=== PATIENT | female | born 1995 | race Caucasian/White ===

== ENCOUNTER 2018-04-25 22:40 | Emergency (ER) | payer SELFPAY ==
[2018-04-25 23:33] LABS: Absolute Lymphocytes (CBC) 2.3 K/uL (0.7-4.9); Absolute Monocytes 0.8 K/uL (0.1-1.3); Absolute Neutrophil 2.7 K/uL (1.8-8.0); Basophils % 0.9 % (0-1.3); Eosinophils % 1.4 % (0-4.4); Hematocrit 38.4 % (36.0-45.0); Lymphocytes % 38.8 % (15.3-44.8); MCV 91.3 fL (80-100); MPV 9.1 fL (7.6-11.3); Monocytes % 13.2 % (3.3-12.3)
[2018-04-25 23:41] LABS: Protime INR 1.07
[2018-04-26 00:02] LABS: Barbiturates NEGATIVE (NEGATIVE); Benzodiazepines POSITIVE (NEGATIVE); Cocaine NEGATIVE (NEGATIVE); METHAMPHETAM POSITIVE (NEGATIVE); Methadone NEGATIVE (NEGATIVE); Opiates NEGATIVE (NEGATIVE); Phencyclidine NEGATIVE (NEGATIVE); THC Cannibis POSITIVE (NEGATIVE)
[2018-04-26 00:02] LABS: ALT/SGPT 21 U/L (12-78); AST/SGOT 22 U/L (15-37); Alkaline Phosphatase 70 U/L (45-117); BUN Blood Urea Nitrogen 15 mg/dL (7-18); Bicarbonate 26 mmol/L (21-32); Bilirubin Direct 0.2 mg/dL (0-0.2); Bilirubin Total 0.5 mg/dL (0.2-1.0); Glucose Level 144 mg/dL (74-106); Potassium 3.5 mmol/L (3.5-5.1); Protein, Total 7.3 g/dL (6.4-8.2); Sodium Level 138 mmol/L (136-145)
[2018-04-26 00:07] LABS: Urine Blood NEGATIVE (NEG); Urine Glucose NEGATIVE (NEG); Urine Protein TRACE (NEG); Urine Specific Gravity 1.025 (1.005-1.030); Urine pH 5.5 (5.0-7.0)
--- NOTE | 2018-04-26 02:36 | EDPHYS ---
Physician Documentation [facility] Name: Kimberley Aquino Age: 22 yrs Sex: Female : 1995 Arrival Date: 04/25/2018 Time: 22:44 Bed 2 Private MD: ED Physician Raymond Fuentes HPI: 04/25 23:00 This 22 yrs old Female presents to ER via EMS with complaints of drug abuse. cp 23:00 The patient presents to the emergency department with a history of substance abuse, cp Type: methamphetamines, the amount of abuse is unknown. Past psychiatric history: Prior diagnosis: addiction history, methamphetamines, Psychiatric medications include: none. Associated signs and symptoms: Pertinent negatives: abdominal pain, chest pain, homicidal ideation, suicide ideation, vomiting. 23:00 EMS reports patient was found on floor in home by mother. Patient admitted to using cp methamphetamine today. Historical: - Allergies: 23:09 No Known Allergies; aa1 - Home Meds: 23:09 None [Active]; aa1 - PMHx: 23:09 Endometrosis; substance abuse; aa1 - PSHx: 23:09 ; Tonsillectomy; aa1 - Immunization history:: Adult Immunizations unknown. - Social history:: Smoking status: unknown Patient uses street drugs, Methamphetamine (Meth). - Ebola Screening: : Unable to complete screening because patient is disoriented, . ROS: 23:05 Unable to obtain ROS due to patient being uncooperative. cp Exam: 23:10 Head/Face: Normocephalic, atraumatic. cp 23:10 Constitutional: The patient appears in no acute distress, well developed, well nourished. 23:10 Eyes: Periorbital structures: appear normal, Pupils: equal, round, and reactive to cp light and accomodation, Conjunctiva: normal, no exudate, no injection, Lids and lashes: appear normal, bilaterally. 23:10 ENT: External ear(s): are unremarkable, Nose: is normal, Mouth: Lips: moist, Posterior pharynx: Airway: no evidence of obstruction, patent. 23:10 Chest/axilla: Inspection: normal. 23:10 Cardiovascular: Rate: normal, Rhythm: regular. 23:10 Respiratory: the patient does not display signs of respiratory distress, Respirations: normal, no use of accessory muscles, no retractions, no splinting, no tachypnea, labored breathing, is not present. 23:10 Abdomen/GI: Inspection: abdomen appears normal. 23:10 Skin: cellulitis, is not appreciated, no rash present. 23:10 Neuro: Motor: moves all fours, strength is normal. 23:10 Psych: Behavior/mood is aggressive, uncooperative, Patient has no thoughts/intents to harm self or others. 23:37 ECG was reviewed by the Attending Physician. cp Vital Signs: 22:44 BP 118 / 83; Pulse 71; Resp 16; Temp 98.8; Pulse Ox 100% on R/A; aa1 23:41 BP 106 / 81; Pulse 95; Resp 16; Pulse Ox 100% on R/A; aa1 04/26 00:30 BP 102 / 56; Pulse 70; Resp 16; Pulse Ox 100% on R/A; Pain 0/10; aa1 01:29 BP 104 / 63; Pulse 68; Resp 16; Pulse Ox 98% on R/A; Pain 0/10; aa1 02:30 BP 102 / 60; Pulse 80; Resp 16; Pulse Ox 100% on R/A; Pain 0/10; aa1 MDM: 04/25 22:46 Patient medically screened. [facility] 04/26 02:33 Data reviewed: vital signs, nurses notes, lab test result(s), EKG, and as a result, I cp will discharge patient. 02:33 ED course: VSS. Patient alert and interacting appropriately with family members. Will cp discharge home with family who feel comfortable observing patient. 04/25 22:49 Order name: Acetaminophen; Complete Time: 01:09 04/25 22:49 Order name: Basic Metabolic Panel; Complete Time: 01: 04/26 01:09 Interpretation: Normal except: GLUC 144. 04/25 22:49 Order name: CBC with Diff; Complete Time: 01: 04/26 01:09 Interpretation: Normal except: MN% 13.2. 04/25 22:49 Order name: ETOH Level; Complete Time: 01: 04/26 01:09 Interpretation: ETOH < 3; Reviewed. 04/25 22:49 Order name: Hepatic Function; Complete Time: 01:09 04/25 22:49 Order name: PT-INR; Complete Time: 01:09 cp 04/25 22:49 Order name: Urine Test (obtain specimen); Complete Time: 23:44 cp 04/25 22:49 Order name: Ptt, Activated; Complete Time: 01:09 cp 04/25 22:49 Order name: Salicylate; Complete Time: 01:09 cp 04/25 22:49 Order name: Urine Drug Screen; Complete Time: 01:09 cp 04/26 01:09 Interpretation: Normal except: BZO POSITIVE; METHAMPHETAMINE POSITIVE; THC POSITIVE. cp 04/25 22:49 Order name: EKG; Complete Time: 22:50 cp 04/25 23:45 Order name: Urine Dipstick--Ancillary (enter results) ms 04/25 23:45 Order name: Urine Dipstick-Ancillary; Complete Time: 01:09 EDMS 04/25 23:45 Order name: Urine --Ancillary (enter results); Complete Time: 01:09 ms 04/25 22:49 Order name: EKG - Nurse/Tech; Complete Time: 23:43 cp 04/25 22:49 Order name: IV Saline Lock; Complete Time: 23:21 cp 04/25 22:49 Order name: Labs collected and sent; Complete Time: 23:21 cp 04/25 22:49 Order name: Urine Dipstick-Ancillary (obtain specimen); Complete Time: 23:43 cp EC/28 23:37 Rate is 73 beats/min. Rhythm is regular. MO interval is normal. QRS interval is normal. cp QT interval is normal. T waves are Flattened in lead aVL. Interpreted by me. Reviewed by me. Administered Medications: No medications were administered Disposition: 04/26 03:00 Chart complete. cp 06:37 Co-signature as Attending Physician, Raymond Fuentes MD I agree with the assessment and saqib plan of care. Disposition: 04/26/18 02:35 Discharged to Home. Impression: Adverse effect of amphetamines, Abuse of other non-psychoactive substances. - Condition is Stable. - Discharge Instructions: Substance Use Disorder, Stimulant Use Disorder-Methamphetamines, What You Need To Know About Illegal Drug Use and Dependence, Youth. - Medication Reconciliation Form, Thank You Letter, Antibiotic Education, Prescription Opioid Use form. - Follow up: Emergency Department; When: As needed; Reason: Worsening of condition. - Problem is new. - Symptoms have improved. Signatures: Dispatcher [employer] Hodan Cates, RN RN aa1 Raymond Fuentes MD MD cha Page, Corey, PA PA cp Caitlyn Ramirez, RN RN tl2 Corrections: (The following items were deleted from the chart) 02:43 02:35 04/26/2018 02:35 Discharged to Home. Impression: Adverse effect of amphetamines. cp Condition is Stable. Forms are Medication Reconciliation Form, Thank You Letter, Antibiotic Education, Prescription Opioid Use. Follow up: Emergency Department; When: As needed; Reason: Worsening of condition. Problem is new. Symptoms have improved. cp 02:59 02:43 04/26/2018 02:35 Discharged to Home. Impression: Adverse effect of amphetamines; tl2 Abuse of other non-psychoactive substances. Condition is Stable. Discharge Instructions: Stimulant Use Disorder-Methamphetamines, What You Need To Know About Illegal Drug Use and Dependence, Youth. Forms are Medication Reconciliation Form, Thank You Letter, Antibiotic Education, Prescription Opioid Use. Follow up: Emergency Department; When: As needed; Reason: Worsening of condition. Problem is new. Symptoms have improved. cp
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
--- NOTE | 2018-04-26 09:23 | EKG ---
Test Date: 2018-04-25 Test Time: 23:30:30 Electromechanical Assembler: REJI MEASUREMENT RESULTS: Intervals: Rate: 73 ND: 120 QRSD: 92 QT: 422 QTc: 464 [place]: P: 64 ND: 120 QRS: 78 T: 75 INTERPRETIVE STATEMENTS: Normal sinus rhythm Normal ECG No previous ECG available for comparison Electronically Signed On 04-26-18 09:22:32 CDT by Ankit Fragoso
== END 2018-04-26 02:59 | disposition home or self-care (01) ==
LOC: ER 22:40
DX: F55.8 Abuse of other non-psychoactive substances (principal); T43.625A Adverse effect of amphetamines, initial encounter
CPT/HCPCS: 36415; 51702; 80048; 80076; 80307; 80320; 80329; 81003; 81025; 82962; 85025; 85610; 85730; 93005; 99284

== ENCOUNTER 2022-06-30 20:43 | Observation (INO) | payer SELFPAY ==
--- OUTSIDE RECORDS SUMMARY | 2022-06-30 20:46 | XMS REPORT | Continuity of Care Document ---
:1995 Author Organization [facility] t Address [address] [place] [address] [address] [place] [address] Care Team Providers Name Role Phone Alvarado Dumont Attending Clinician Unavailable Alvarado Dumont Attending Clinician Unavailable Alvarado Dumont MD Attending Clinician Elly Petersen Attending Clinician Tresa Mitchell MD Attending Clinician Alvarado Dumont Admitting Clinician Unavailable Payers Payer Name Policy Type Policy Number Effective Date Expiration Date S ource Problems Condition Condition Condition Status Onset Resolution Last Treating Co mments Source Name Details Category Date Date Treatment Clinician Date Overweight Overweight Disease Active 2013-07 Overview : Univers 07-31 ICD10 ity of 00:00: Diagnosis [place] [address] Term Medical [facility] [place] [facility] Utility Tobacco Tobacco Disease Active 2013-07 Univers use use 07-31 ity of disorder disorder 00:00: [place] [address] Medical Branch Allergies, Adverse Reactions, Alerts Allergy Allergy Status Severity Reaction(s) Onset Inactive Treating Comm ents Source Name Type Date Date Clinician No Known DA Active U 2015-07 [facility] All[facility]ie 08-14 [place] [facility] 00:00: d 00 [facility] No Known Drug Active [facility] No Known Drug Active [facility] No Known Drug Active [facility] No Known Drug Active [facility] No [facility] [place] No Known Drug [facility] Social History Social Habit Start Date Stop Date Quantity Comments Source History of Cigarette Smoker Universi ty of tobacco use [facility] Alcohol intake [facility] Sex Assigned At Universit y of [facility] Tobacco Comment 2015-04-27 2015-04-27 smokes 5-6 Universit y of 00:00:00 00:00:00 cigarettes per day [facility] Smoking Status Start Date Stop Date Source Current every day smoker 2019-04-02 00:00:00 Uni versity of [facility] Medications Ordered Filled Start Stop Current Ordering Indication Dosage Frequency Signature Comments Components Source Medication Medication Date Date Medication? Clinician (SIG) Name Name acetaminoph 2019- No 650mg 650 mg, U nivers en 04-03 Oral, ity of (TYLENOL) 10:00: 08:58 [place]CE[place] 650 00 :00 dose, Fri Medi elia mg 04/03/19 at Branch 0500, [place] ziprasidone 2019- No 20mg 20 mg, Uni vers (GEODON) 04-03 Intramuscu ity of injection 02:21: 02:33 [place], ONCE, [place] 20 mg 00 :00 1 dose, Medical [facility] 04/02/19 Branch at 2130, [place] melatonin Yes 3mg 3 mg, Univers (MELATIN) 04-03 Oral, QHS, ity of tablet 3 mg 02:00: First dose [facility] Medical 04/02/19 at Branch 2100, Until Discontinu ed, Routine acetaminoph 2018- No 650mg 650 mg, U nivers en 04-03 Oral, ity of (TYLENOL) 01:43: 02:31 [place]CE[place] 650 00 :00 dose, [place] Medi elia mg 04/02/19 at Branch 2045, [place] ibuprofen 2019- No 600mg 600 mg, Uni vers (IBU) 04-02 Oral, ity of tablet 600 23:45: 22:42 ONCE, 1 [place] as mg 00 :00 dose, [facility] Medical 04/02/19 at Branch 1845, [facility] ziprasidone 2018- No 20mg 20 mg, Uni vers (GEODON) 04-02 Intramuscu ity of injection 19:00: 17:53 lar, ONCE, [place] 20 mg 00 :00 1 dose, Medical [facility] 04/02/19 Branch at 1400, [facility] nicotine 2018- Yes 1{patch 1 Patch, Un nino (NICODERM) 04-02 } Topical, ity o f 21 mg/24 hr 17:15: Administer [place] patch 1 00 over 24 Medical Patch Hours, Branch Q24H, First dose on Fina 04/02/19 at 1215, Until Discontinu ed, Routine LORazepam 2018- No 2mg 2 mg, Univer s (ATIVAN) 04-02 Oral, ity of tablet 2 mg 16:14: 16:16 [place]CE, 1 [place] 00 :[place] dose, [facility] Medical 04/02/19 at Branch 1115, [facility] acetaminoph 2018- No 650mg 650 mg, U nivers en 04-02 Oral, ity of (TYLENOL) 11:15: 10:11 [place]CE, [place] tablet 650 00 :00 dose, [facility] Medi elia mg 04/02/19 at Branch 0615, [facility] ziprasidone 2019- No 20mg 20 mg, Uni vers (GEODON) 04-01 Intramuscu ity of injection 23:30: 22:26 lar, ONCE, [place] 20 mg 00 :00 1 dose, Medical 04/01/19 Branch at 1830, [facility] Yes [id number] 1{tbl} Take 1 Tab Univers ref27-zfke- 9-30 by mouth ity of folic acid 00:00: daily. [place] (PRENATA) Medical 29 mg iron- Branch 1 mg Chew Yes [id number] 1{tbl} Take 1 Tab Univers tjk32-ohor- 9-30 by mouth ity of folic acid 00:00: daily. [place] (PRENATA) Medical 29 mg iron- Branch 1 mg Chew Immunizations Ordered Filled Immunization Date Status Comments [facility] e Immunization Name Name Influenza Virus 2015-04-27 Completed Universit y of Vaccine Quad IM 3+ 00:00:00 [facility] Influenza Virus 2015-04-27 Completed Universit y of Vaccine Quad IM 3+ 00:00:00 [facility] Tdap 2011-02-28 Completed University of 00:00:00 [facility] Tdap 2011-02-28 Completed University of 00:00:00 [facility] HPV 2010-09-08 Completed University of 00:00:00 [facility] HPV 2010-09-08 Completed University of 00:00:00 [facility] Vital Signs Vital Name Observation Time Observation Value Comments Source Height/Length 2021-08-15 11:27:54 175.26 cm Measured Weight Dosing 2021-08-15 11:27:54 63.50 kg Height/Length 2021-08-15 11:26:41 175.26 cm Measured Weight Dosing 2021-08-15 11:26:41 63.50 kg Height/Length 2021-08-15 11:20:53 175.26 cm Measured Weight Dosing 2021-08-15 11:20:53 63.50 kg Height/Length 2021-08-15 11:19:46 175.26 cm Measured Weight Dosing 2021-08-15 11:19:46 63.50 kg Height/Length 2021-08-15 09:57:40 175.26 cm Measured Weight Dosing 2021-08-15 09:57:40 63.50 kg Height/Length 2021-08-15 08:55:40 175.26 cm Measured Weight Dosing 2021-08-15 08:55:40 63.50 kg Systolic blood 2019-04-03 08:59:31 103 mm[Hg] Univer sity of pressure [facility] Diastolic blood 2019-04-03 08:59:31 61 mm[Hg] Unive [facility] [place] Heart rate 2019-04-03 08:59:31 92 /min [facility] Respiratory rate 2019-04-03 08:59:31 18 /min [facility] Oxygen saturation in 2019-04-03 08:59:31 99 /min [facility] Arterial blood by [facility] Pulse oximetry Branch Body temperature 2019-04-02 22:23:09 36.[address] [facility] [address] [facility] Body weight 2019-04-01 21:02:00 59.013 kg [facility] Systolic blood 2019-04-03 08:59:31 103 mm[Hg] Univer sity of pressure [facility] Diastolic blood 2019-04-03 08:59:31 61 mm[Hg[facility] Heart rate 2019-04-03 08:59:31 92 /min [facility] Respiratory rate 2019-04-03 08:59:31 18 /min [facility] Oxygen saturation in 2019-04-03 08:59:31 99 /min [facility] Arterial blood by [facility] Pulse oximetry [place] Body temperature 2019-04-02 22:23:09 36.39 [place] [facility] Body weight 2019-04-01 21:02:00 59.013 kg [facility] Procedures Procedure Date / Time Performing Clinician Source Performed COMP. METABOLIC PANEL 2019-04-01 21:54:00 Elly Claire [facility] ([id number]) [facility] SALICYLATE 2019-04-01 21:54:00 Elly Claire [facility] ETHANOL 2019-04-01 21:54:00 Elly Claire [facility] CBC WITH DIFFERENTIAL 2019-04-01 21:54:00 Elly Claire [facility] URINALYSIS 2019-04-01 21:54:00 Elly Claire [facility] POCT TEST 2019-04-01 21:54:00 Elly Claire [facility] ADC / LCC - DRUG SCREEN 2019-04-01 21:54:00 Elly Claire [facility] TRIAGE [facility] EKG-12 LEAD 2019-04-01 21:35:00 Elly Claire [facility] NOTICE OF PRIVACY 2019-04-01 20:53:12 Doctor Unassigned, No Univ [facility] PRACTICES Name Medical Branch CONSENT/REFUSAL FOR 2019-04-01 20:48:00 [facility] Encounters Start End Encounter Admission Attending Care Care Encounter Source Date/Time Date/Time Type Type Clinicians Facility Department ID 2019-04-03 2019-04-20 Inpatient [address] [facility] [id number] 04[facility]47[facility]00 [facility]30[facility]-04-03 2019-04-[address] [facility] [address] [facility] [id number] 13:11:50 23:59:00 Encounter Alvarado MCDOWELL [id number] MEDICAL 4.2.7.2.686 [place] [id number] 2019-04-03 2019-04-[address] [facility] [address] [facility] [id number] Univers 13:11:50 23:59:00 Encounter Alvarado MCDOWELL [id number] ity of [facility] [id number] [facility] [id number] [address] 2019-04-01 2019-04-03 [facility] Elly Claire [facility] 1.2.840. [id number] [facility] 16:06:04 04:05:00 Tresa Mitchell [id number] ity of [place] 4.2.7.2.686 [facility] [id number] [place] [address] Branch 2019-04-01 2019-04-03 [facility] Elly Claire [facility] 1.2.840. [id number] 16:06:04 04:05:00 Tresa Mitchell [id number] [place] 4.2.7.2.686 [place] [id number] 084 Results Test Description Test Time Test Comments Results Result Comments Source RPR Qualitative 2019-04-04 14:41:51 Test Item Value Reference Range Interpretation Comme nts RPR Qual (test code = RPR Qual) Non-Reactive Non-Reactive Reactive Control (test code = Reactive Control) Reactive Weak Reactive Control (test code = Weak Reactive Weak Reactive Control) Non-Reactive Control (test code = Non-Reactive Non-Reactive Control) Lot # (test code = Lot #) [id number] Expiration Dt (test code = Expiration Dt) 05-28-20 N Thyroid Stimulating [id number] 09:14:49 Test Item Value Reference Range Interpretation Comments TSH (test code = TSH) 1.120 mIU/mL 0.270-4.200 Lipid [id number] 09:01:23 Test Item Value Reference Range Interpretation Comments Cholesterol Total 155 mg/dL 0-200 RISK OF HE ART (test code = DISEASEPublishe d by Cholesterol Total) [place] [employer] Iva lyte Optimal Borderl ine Increased RiskC HOL <200 200-239 >240TRI G <150 150-199 >200HDL Male >60 <40HDL Fema le >60 <50LDL <100 130 -159 >160LDL Near op timal is 100-129 Triglycerides (test 48 mg/dL 9-200 code = Triglycerides) HDL (test code = HDL) 70 mg/dL 50-60 H LDL (test code = LDL) 76 mg/dL 0-130 The eq uation being used in this calcula tion is LDL = (Chol - H DL) - (Trig / 5) VLDL (test code = 10 mg/dL 5-40 The equati on being used VLDL) in this calcula tion is VLDL = Trig / 5 Chol/HDL (test code = 2.2 ratio 0.0-4.4 Chol/HDL) LDL/HDL Ratio (test 1 N The equa tion being used code = LDL/HDL Ratio) in thi s calculation is LDL/HDL Ratio=L DL Calc/HDL Chol [id number] 22:33:00 Test Item Value Reference Range Interpretation Comments ALCOHOL (test code = <10 mg/dL 7524729381) KHOA (test code = KHOA) <10 Arcjcwkg84-950 Toxic>100 Depression of SENIOR PRICING ANALYST>400 [facility]atalities [facility]orted [facility] 22:33:00 Test Item Value Reference Range Interpretation Comments ACETAMINOP (test code = <10.0 10-30 L 4821411528) KHOA (test code = KHOA) Toxic: Greater than 200 ug/mL @ 4 hour post ingestion or greater than 50 ug/mL @ 12 hour post ingestion Lab Interpretation (test Abnormal code = 81631-5) [facility] 22:33:00 Test Item Value Reference Range Interpretation Comments SALICYLATE (test code <10 mg/L = 7656924414) KHOA (test code = KHOA) Therapeutic Range:? Analgesic and Antipyretic Use? 20-100 mg/L? Anti-Inflammatory Use? 100-250 mg/LToxic Range:? Greater than 300 mg/L [facility] PAN[facility] (24742)2019-04-01 22:31:00 Test Item Value Reference Range Interpretation Comments NA (test code = 143 mmol/L 135-145 9474723569) K (test code = 4.4 mmol/L 3.5-5 1715128888) CL (test code = 105 mmol/L 98-108 2901917832) CO2 TOTAL (test code = 29 mmol/L 23-31 3331557325) AGAP (test code = 2-16 3093465576) BUN (test code = 9 mg/dL 7-23 9926363224) GLUCOSE (test code = 84 mg/dL 70-110 0396088451) CREATININE (test code = 0.51 mg/dL 0.5-1.04 5629677344) TOTAL BILI (test code = 0.2 mg/dL 0.1-1.9 1192892398) CALCIUM (test code = 10.2 mg/dL 8.6-10.6 5467669566) T PROTEIN (test code = 7.9 g/dL 6.3-8.2 1866473202) ALBUMIN (test code = 4.9 g/dL 3.5-5 3312112158) ALK PHOS (test code = 66 U/L 34-122 4298669720) ALT(SGPT) (test code = 53 U/L 9-51 H 6705759876) AST(SGOT) (test code = 50 U/L 13-40 H 2843346579) eGFR Calculation mL/min/1.73m2 (Non-) (test code = 7956497840) eGFR Calculation mL/min/1.73m2 () (test code = 8780366127) KHOA (test code = KHOA) Association of Glomerular Filtration Rate (GFR) and Staging of Kidney Disease*+ + + +| GFR (mL/min/1.73 m2)?| With Kidney Damage?|?Without Kidney Damage+ --------+ --------+ +|?>90?|?S tage one?|? Normal?+ ---------+ ---------+ +|?60-89? |?Stage two?|? Decreased GFR? + --+ --+ ------+|?30-59?|?Stage three?|? Stage three? + --+ --+ ------+|?15-29?|?Stage four? |? Stage four?+ -------+ -------+ +|?<15 (or dialysis)?|?Stage five? |? Stage five?+ -------+ -------+ +*Each stage assumes the associated GFR level has been in effect for at least three months.?Stages 1 to 5, with or without kidney disease, indicate chronic kidney disease.Notes: Determination of stages one and two (with eGFR >59mL/min/1.73 m2) requires estimation of kidney damage for at least three months as defined by structural or functional abnormalities of the kidney, manifested by either:Pathological abnormalities or Markers of kidney damage (including abnormalities in the composition of the blood or urine or abnormalities in imaging tests). Lab Interpretation Abnormal (test code = 03317-4) [facility] / [facility] - DRUG SCREEN [id number] 22:25:00 Test Item Value Reference Range Interpretation Comments BENZO U (test code = Negative Negative 5182195856) JAMES U (test code = Negative Negative 0094326643) AMPHET (test code = Negative Negative 1697858604) THC (test code = Negative Negative 5622377093) METHADONE (test code = Negative Negative 9551715063) Meth U (test code = Presumptive Positive Negative A 8835125344) OPIATES (test code = Negative Negative 1104424715) Cocaine Metabolite (test Negative Negative code = 1566679010) PROPOXY (test code = Negative Negative 2831446492) Tric U (test code = Negative Negative 9074887319) PCP (test code = Negative Negative 5345838579) OXYCOD (test code = Negative Negative 4017854984) KHOA (test code = KHOA) Urine Drug Cutoff RangesBenzodiazepines : ? ? 150 ng/mLBarbiturates: ?200 ng/mLAmphetamine: ? 500 ng/mLCannabinoids: ?50?ng/mLMethadone: ? 200 ng/mLMethamphetamine: ? 500 ng/mL Opiates: ? 100 ng/mL or 2000 ng/mLCocaine: ? 150 ng/mLPropoxyphene:?30 0 ng/mLTricyclics:?300 ng/mLOxycodone:? 100 ng/mLPCP:? 25?ng/mLThe results are to be used only for medical (i.e., treatment) purposes. Unconfirmed screening results must not be used for non-medical purposes (e.g., employment testing, legal testing). Lab Interpretation (test Abnormal code = 75841-6) [facility] 22:22:00 Test Item Value Reference Range Interpretation Comments APPEARANCE (test code = Clear Clear 0906657313) COLOR (test code = Colorless Yellow A 2761305294) PH (test code = 4.8-8.0 0446653764) SP GRAVITY (test code = <=1.005 1.003-1.030 6345362450) GLU U QUAL (test code = Negative Negative 8177516051) BLOOD (test code = Negative Negative 6028258113) KETONES (test code = Negative Negative 1576507399) PROTEIN (test code = Negative Negative 2887-8) UROBILIN (test code = 0.2 mg/dL See_Comment [Auto mated message] 5029048979) The system [employer] generated this result transmit jake reference range : 0-1.0 mg/dL. Th e reference range was not used to interpret this result as normal/abnormal . BILIRUBIN (test code = Negative Negative 4876003806) NITRITE (test code = Negative Negative 6235137863) LEUK JAMI (test code = Negative Negative 1638304552) RBC/HPF (test code = See_Comment [Autom ated message] 8771223689) The system [employer] generated this result transmit jake reference range : 0 - 3 HPF. The refe rence range was not u sed to interpret th is result as normal/abnormal . WBC/HPF (test code = See_Comment [Autom ated message] 8101877971) The system [employer] generated this result transmit jake reference range : 0 - 5 HPF. The refe rence range was not u sed to interpret th is result as normal/abnormal . BACTERIA (test code = Negative Negative 0227572869) Lab Interpretation (test Abnormal code = 33848-3) [facility] WITH [id number] 22:11:00 Test Item Value Reference Range Interpretation Comments WBC (test code = See_Comment [Automated 6690-2) message] The sy stem which generated this result transmitted reference range : 4.30 - 11.10 10*3/?L. The reference range was not used to interpret this result as normal/abnormal . RBC (test code = See_Comment [Automated 789-8) message] The sy stem which generated this result transmitted reference range : 3.93 - 5.25 10*6/?L. The reference range was not used to interpret this result as normal/abnormal . HGB (test code = 14.0 g/dL 11.6-15 718-7) HCT (test code = 42.7 % 35.7-45.2 4544-3) MCV (test code = 91.8 fL 80.6-95.5 787-2) MCH (test code = 30.1 pg 25.9-32.8 785-6) MCHC (test code = 32.8 g/dL 31.6-35.1 786-4) RDW-SD (test code = 43.6 fL 39-49.9 92719-9) RDW-CV (test code = 13.0 % 12-15.5 788-0) PLT (test code = See_Comment H [Automated 777-3) message] The sy stem which generated this result transmitted reference range : 166 - 358 10*3/ ?L. The reference r lilia was not used to interpret this result as normal/abnormal . MPV (test code = 10.7 fL 9.5-12.9 81329-8) NRBC/100 WBC (test See_Comment [Automat ed code = 6457715945) message] The system which generated this result transmitted reference range : 0.0 - 10.0 /100 WBCs. The refer ence range was not u sed to interpret th is result as normal/abnormal . NRBC x10^3 (test code <0.01 See_Comment [Auto mated = 8334787009) message] The s ystem which generated this result transmitted reference range : 10*3/?L. The reference range was not used to interpret this result as normal/abnormal . GRAN MAT (NEUT) % 57.4 % (test code = 770-8) IMM GRAN % (test code 0.40 % = 3534225225) LYMPH % (test code = 32.1 % 736-9) MONO % (test code = 8.5 % 5905-5) EOS % (test code = 0.8 % 713-8) BASO % (test code = 0.8 % 706-2) GRAN MAT x10^3(ANC) 5.55 10*3/uL 1.88-7.09 (test code = 5442542787) IMM GRAN x10^3 (test 0.04 10*3/uL 0-0.06 code = 5921896511) LYMPH x10^3 (test code 3.10 10*3/uL 1.32-3.29 = 731-0) MONO x10^3 (test code 0.82 10*3/uL 0.33-0.92 = 742-7) EOS x10^3 (test code = 0.08 10*3/uL 0.03-0.39 711-2) BASO x10^3 (test code 0.08 10*3/uL 0.01-0.07 H = 704-7) Lab Interpretation Abnormal (test code = 77230-4) [facility] [id number] 21:54:00 Test Item Value Reference Range Interpretation Comments POCT PREG (test code = 1605) Negative On board controls acceptable with Present C Line (test code = 3574) POCT PREG LOT # (test code = HCG [id number]) POCT PREG TEST DATE (test 07/28/2020 code = 3576) Lab Interpretation (test code = Normal 02594-6) [facility] 21:29:00 Test Item Value Reference Range Interpretation Comments ACETAMINOPHEN (test code = ACET) < 2.0 mcG/ML 10.0-30.0 L Last Dose Date: 03/29/19Last Dose Time: [id number] 21:27:00 Test Item Value Reference Range Interpretation Comments SALICYLATE (test code = DARVIN) < 1.7 MG/DL 2.8-20.0 THER L HCG SERUM [id number] 08:38:00 Test Item Value Reference Range Interpretation Comments HCG SERUM QUAL (test SERUM NEGATIVE SCREEN NEGATIVE code = HCGQL) UA RFLX MICR CULT IF [id number] 19:13:00 Test Item Value Reference Range Interpretation Comments UA COLOR (test code = COLU) YELLOW discript YEL/STRAW UA APPEARANCE (test code = CLEAR discript CLEAR APPU) UA GLUCOSE DIPSTICK (test NEGATIVE mg/dL NEG code = DGLUU) UA BILIRUBIN DIPSTICK (test NEGATIVE mg/dL NEG code = BILU) UA KETONE DIPSTICK (test NEGATIVE mg/dL NEG code = KETU) UA SPECIFIC GRAVITY (test 1.025 SG 1.005-1.030 code = SGU) UA BLOOD DIPSTICK (test NEGATIVE mg/DL NEG code = BETTY) UA PH DIPSTICK (test code = 6.0 pH UNITS 5.0-7.0 IDA) UA PROTEIN DIPSTICK (test TRACE mg/dL NEG A code = PROU) UA UROBILINIOGEN DIPSTICK 0.2 mg/dL <2.0 (test code = URO) UA NITRITE DIPSTICK (test NEGATIVE SCREEN NEG code = HOLLI) UA LEUKOCYTE ESTERASE NEGATIVE Leuk/mcL NEGATIVE DIPSTICK (test code = LEUU) UA WBC (test code = WBCU) 0-1 #WBC/HPF 0-3 UA RBC (test code = RBCU) 0-1 #RBC/HPF 0-3 UA BACTERIA (test code = TRACE /HPF NONE-TRACE BACU) UA SQUAMOUS CELLS (test TRACE /HPF NONE code = SQU) UA CULTURE NEEDED? (test Criteria Culture CHK code = UACULT) SOURCE OF URINE: MIDSTREAMIndication for culture: Suprapubic PainDRUGS OF ABUSE SCREEN [id number] 19:13:00 Test Item Value Reference Range Interpretation Comments URN COCAINE (test code = NEGATIVE SCcutoff <300 NG/ML COCAURN) URN CANNABINOIDS (test code NEGATIVE SCcutoff <50 NG/ML = CANNABURN) URN AMPHETAMINE (test code POSITIVE SCcutoff <1000 NG/ML A = AMPHETURN) URN BARBITURATE (test code NEGATIVE SCcutoff <200 NG/ML = BARBITURN) URN BENZODIAZEPINE (test NEGATIVE SCcutoff <200 NG/ML code = BENZOURN) URN OPIATES (test code = NEGATIVE SCcutoff <2000 NG/ML OPIATURN) URN PHENCYCLIDINE (PCP) NEGATIVE SCcutoff <25 NG/ML (test code = PHENCURN) URN METHADONE (test code = NEGATIVE SCcutoff <300 NG/ML METHAURN) SOURCE OF URINE: MIDSTREAMIndication for culture: Suprapubic PainUA RFLX MICR CULT IF [id number] 19:13:00 Test Item Value Reference Range Interpretation Comments UA COLOR (test code = YELLOW discript YEL/STRAW COLU) UA APPEARANCE (test code CLEAR discript CLEAR = APPU) UA GLUCOSE DIPSTICK (test NEGATIVE mg/dL NEG code = DGLUU) UA BILIRUBIN DIPSTICK NEGATIVE mg/dL NEG (test code = BILU) UA KETONE DIPSTICK (test NEGATIVE mg/dL NEG code = KETU) UA SPECIFIC GRAVITY (test 1.025 SG 1.005-1.030 code = SGU) UA BLOOD DIPSTICK (test NEGATIVE mg/DL NEG code = BETTY) UA PH DIPSTICK (test code 6.0 pH UNITS 5.0-7.0 = IDA) UA PROTEIN DIPSTICK (test TRACE mg/dL NEG A code = PROU) UA UROBILINIOGEN DIPSTICK 0.2 mg/dL <2.0 (test code = URO) UA NITRITE DIPSTICK (test NEGATIVE SCREEN NEG code = HOLLI) UA LEUKOCYTE ESTERASE NEGATIVE Leuk/mcL NEGATIVE DIPSTICK (test code = LEUU) UA WBC (test code = WBCU) 0-1 #WBC/HPF 0-3 UA RBC (test code = RBCU) 0-1 #RBC/HPF 0-3 UA BACTERIA (test code = TRACE /HPF NONE-TRACE BACU) UA SQUAMOUS CELLS (test TRACE /HPF NONE code = SQU) UA CULTURE NEEDED? (test NO, WBC<10 Criteria Culture CHK code = UACULT) SOURCE OF URINE: MIDSTREAMIndication for culture: Suprapubic PainDRUGS OF ABUSE SCREEN [id number] 19:13:00 Test Item Value Reference Range Interpretation Comments URN COCAINE (test code = NEGATIVE SCcutoff <300 NG/ML COCAURN) URN CANNABINOIDS (test code NEGATIVE SCcutoff <50 NG/ML = CANNABURN) URN AMPHETAMINE (test code POSITIVE SCcutoff <1000 NG/ML A = AMPHETURN) URN BARBITURATE (test code NEGATIVE SCcutoff <200 NG/ML = BARBITURN) URN BENZODIAZEPINE (test NEGATIVE SCcutoff <200 NG/ML code = BENZOURN) URN OPIATES (test code = NEGATIVE SCcutoff <2000 NG/ML OPIATURN) URN PHENCYCLIDINE (PCP) NEGATIVE SCcutoff <25 NG/ML (test code = PHENCURN) URN METHADONE (test code = NEGATIVE SCcutoff <300 NG/ML [place]) SOURCE OF URINE: MIDSTREAMIndication for culture: Suprapubic PainUA RFLX MICR CULT IF [id number] 19:11:00 Test Item Value Reference Range Interpretation Comments UA COLOR (test code = COLU) YELLOW discript YEL/STRAW UA APPEARANCE (test code = CLEAR discript CLEAR APPU) UA GLUCOSE DIPSTICK (test NEGATIVE mg/dL NEG code = DGLUU) UA BILIRUBIN DIPSTICK (test NEGATIVE mg/dL NEG code = BILU) UA KETONE DIPSTICK (test NEGATIVE mg/dL NEG code = KETU) UA SPECIFIC GRAVITY (test 1.025 SG 1.005-1.030 code = SGU) UA BLOOD DIPSTICK (test NEGATIVE mg/DL NEG code = BETTY) UA PH DIPSTICK (test code = 6.0 pH UNITS 5.0-7.0 IDA) UA PROTEIN DIPSTICK (test TRACE mg/dL NEG A code = PROU) UA UROBILINIOGEN DIPSTICK 0.2 mg/dL <2.0 (test code = URO) UA NITRITE DIPSTICK (test NEGATIVE SCREEN NEG code = HOLLI) UA LEUKOCYTE ESTERASE NEGATIVE Leuk/mcL NEGATIVE DIPSTICK (test code = LEUU) UA CULTURE NEEDED? (test Criteria Culture CHK code = UACULT) SOURCE OF URINE: MIDSTREAMIndication for culture: Suprapubic PainDRUGS OF ABUSE SCREEN [id number] 19:11:00 Test Item Value Reference Range Interpretation Comments URN COCAINE (test code = NEGATIVE SCcutoff <300 NG/ML COCAURN) URN CANNABINOIDS (test code NEGATIVE SCcutoff <50 NG/ML = CANNABURN) URN AMPHETAMINE (test code POSITIVE SCcutoff <1000 NG/ML A = AMPHETURN) URN BARBITURATE (test code NEGATIVE SCcutoff <200 NG/ML = BARBITURN) URN BENZODIAZEPINE (test NEGATIVE SCcutoff <200 NG/ML code = BENZOURN) URN OPIATES (test code = NEGATIVE SCcutoff <2000 NG/ML OPIATURN) URN PHENCYCLIDINE (PCP) NEGATIVE SCcutoff <25 NG/ML (test code = PHENCURN) URN METHADONE (test code = NEGATIVE SCcutoff <300 NG/ML [place]) SOURCE OF URINE: MIDSTREAMIndication for culture: Suprapubic PainUA RFLX MICR CULT IF [id number] 19:07:00 Test Item Value Reference Range Interpretation Comments UA COLOR (test code = COLU) YELLOW discript YEL/STRAW UA APPEARANCE (test code = CLEAR discript CLEAR APPU) UA GLUCOSE DIPSTICK (test NEGATIVE mg/dL NEG code = DGLUU) UA BILIRUBIN DIPSTICK (test NEGATIVE mg/dL NEG code = BILU) UA KETONE DIPSTICK (test NEGATIVE mg/dL NEG code = KETU) UA SPECIFIC GRAVITY (test 1.025 SG 1.005-1.030 code = SGU) UA BLOOD DIPSTICK (test NEGATIVE mg/DL NEG code = BETTY) UA PH DIPSTICK (test code = 6.0 pH UNITS 5.0-7.0 IDA) UA PROTEIN DIPSTICK (test TRACE mg/dL NEG A code = PROU) UA UROBILINIOGEN DIPSTICK 0.2 mg/dL <2.0 (test code = URO) UA NITRITE DIPSTICK (test NEGATIVE SCREEN NEG code = HOLLI) UA LEUKOCYTE ESTERASE NEGATIVE Leuk/mcL NEGATIVE DIPSTICK (test code = LEUU) UA CULTURE NEEDED? (test Criteria Culture CHK code = UACULT) SOURCE OF URINE: MIDSTREAMIndication for culture: Suprapubic PainDRUGS OF ABUSE SCREEN [id number] 19:07:00 Test Item Value Reference Range Interpretation Comments URN COCAINE (test code = COCAURN) SCcutoff <300 NG/ML URN CANNABINOIDS (test code = SCcutoff <50 NG/ML CANNABURN) URN AMPHETAMINE (test code = SCcutoff <1000 NG/ML AMPHETURN) URN BARBITURATE (test code = SCcutoff <200 NG/ML BARBITURN) URN BENZODIAZEPINE (test code = SCcutoff <200 NG/ML BENZOURN) URN OPIATES (test code = OPIATURN) SCcutoff <2000 NG/ML URN PHENCYCLIDINE (PCP) (test code SCcutoff <25 NG/ML = PHENCURN) URN METHADONE (test code = SCcutoff <300 NG/ML [place]) SOURCE OF URINE: MIDSTREAMIndication for culture: Suprapubic PainBASIC METABOLIC [id number] 18:58:00 Test Item Value Reference Range Interpretation Comments SODIUM (test code = NA) 141 mmol/L 134-147 N POTASSIUM (test code = 3.9 mmol/L 3.4-5.0 N K) CHLORIDE (test code = 108 mmol/L 100-108 N CL) CARBON DIOXIDE (test 25 mmol/L 21-32 N code = CO2) ANION GAP (test code = 8.0 GAP calc 4.0-15.0 N GAP) GLUCOSE (test code = 77 MG/DL 70-110 N GLU) BLOOD UREA NITROGEN 18 MG/DL 7-18 N (test code = BUN) GLOMERULAR FILTRATION >=60 max estimate >60 RATE (test code = GFR) estGFR CREATININE (test code = 0.7 MG/DL 0.6-1.0 N CREAT) CALCIUM (test code = CA) 9.0 MG/DL 8.5-10.1 N HEPATIC FUNCTION [id number] 18:58:00 Test Item Value Reference Range Interpretation Comments TOTAL PROTEIN (test code = PROT) 7.2 G/DL 6.4-8.2 N ALBUMIN (test code = ALB) 4.1 G/DL 3.4-5.0 N BILIRUBIN TOTAL (test code = BILT) 0.60 MG/DL 0.2-1.2 N BILIRUBIN DIRECT (test code = 0.10 MG/DL 0.00-0.30 N BILD) BILIRUBIN INDIRECT (test code = 0.50 MG/DL 0.2-1.2 N BILIND) SGOT/AST (test code = AST) 36 Unit/L 15-37 N SGPT/ALT (test code = ALT) 36 Unit/L 12-78 N ALKALINE PHOSPHATASE TOTAL (test 62 Unit/L 45-117 N code = ALKP) [id number] 18:58:00 Test Item Value Reference Range Interpretation Comments ALCOHOL (test code = ALC) < 3 MG/DL 0-10 N BASIC METABOLIC [id number] 18:56:00 Test Item Value Reference Range Interpretation Comments SODIUM (test code = NA) 141 mmol/L 134-147 N POTASSIUM (test code = K) 3.9 mmol/L 3.4-5.0 N CHLORIDE (test code = CL) 108 mmol/L 100-108 N CARBON DIOXIDE (test code = CO2) 25 mmol/L 21-32 N ANION GAP (test code = GAP) 8.0 GAP calc 4.0-15.0 N GLUCOSE (test code = GLU) 77 MG/DL 70-110 N BLOOD UREA NITROGEN (test code = 18 MG/DL 7-18 N BUN) GLOMERULAR FILTRATION RATE (test estGFR >60 code = GFR) CREATININE (test code = CREAT) MG/DL 0.6-1.0 CALCIUM (test code = CA) 9.0 MG/DL 8.5-10.1 N HEPATIC FUNCTION [id number] 18:56:00 Test Item Value Reference Range Interpretation Comments TOTAL PROTEIN (test code = PROT) G/DL 6.4-8.2 ALBUMIN (test code = ALB) G/DL 3.4-5.0 BILIRUBIN TOTAL (test code = BILT) MG/DL 0.2-1.2 BILIRUBIN DIRECT (test code = BILD) MG/DL 0.00-0.30 BILIRUBIN INDIRECT (test code = MG/DL 0.2-1.2 BILIND) SGOT/AST (test code = AST) Unit/L 15-37 SGPT/ALT (test code = ALT) Unit/L 12-78 ALKALINE PHOSPHATASE TOTAL (test code Unit/L 45-117 = ALKP) [id number] 18:56:00 Test Item Value Reference Range Interpretation Comments ALCOHOL (test code = ALC) MG/DL 0-10 CBC W/AUTO [id number] 18:44:00 Test Item Value Reference Range Interpretation Comments WHITE BLOOD CELL (test code = 12.3 K/mm3 3.5-11.0 H WBC) RED BLOOD CELL (test code = RBC) 4.30 M/mm3 4.70-6.10 L HEMOGLOBIN (test code = HGB) 13.3 G/DL 10.4-14.9 N HEMATOCRIT (test code = HCT) 39.4 % 31.5-44.1 N MEAN CELL VOLUME (test code = 91.6 Fl 84.5-98.6 N MCV) MEAN CELL HGB (test code = MCH) 30.9 pg 27.0-34.2 N MEAN CELL HGB CONCETRATION (test 33.8 G/DL 31.5-34.0 N code = MCHC) RED CELL DISTRIBUTION WIDTH (test 13.2 SD 11.5-14.5 N code = RDW) PLATELET COUNT (test code = PLT) 353.0 K/mm3 150-450 N MEAN PLATELET VOLUME (test code = 10.20 fL 7.0-10.5 N MPV) NEUTROPHIL % (test code = NT%) 68.0 % 40-76 N LYMPHOCYTE % (test code = LY%) 22.7 % 20.5-51.1 N MONOCYTE % (test code = MO%) 8.3 % 1.7-9.3 N EOSINOPHIL % (test code = EO%) 0.7 % 0.0-6.0 N BASOPHIL % (test code = BA%) 0.3 % 0.0-2.0 N NEUTROPHIL # (test code = NT#) 8.35 K/mm3 1.8-7.6 H LYMPHOCYTE # (test code = LY#) 2.8 K/mm3 0.6-3.2 N MONOCYTE # (test code = MO#) 1.0 K/mm3 0.3-1.1 N EOSINOPHIL # (test code = EO#) 0.1 K/mm3 0.0-0.4 N BASOPHIL # (test code = BA#) 0.0 K/mm3 0.0-0.1 N MANUAL DIFF REQUIRED (test code = NO DIFF/SCN CRITERIA MDIFF)"
[2022-06-30 21:12] LABS: Urine Blood Negative (Negative); Urine Glucose 2+ (Negative); Urine Protein 1+ (Negative); Urine Specific Gravity >=1.030 (1.005-1.030)
[2022-06-30 21:31] LABS: Absolute Lymphocytes (CBC) 0.7 K/uL (0.7-4.9); Hematocrit 41.3 % (36.0-45.0); Lymphocytes % 2.8 % (15.3-44.8); MCV 91.5 fL (80-100); MPV 8.9 fL (7.6-11.3); RBC Red Blood Cell Count 4.52 M/uL (3.86-4.86)
[2022-06-30 21:35] LABS: Protime INR 1.08
[2022-06-30 21:43] LABS: ALT/SGPT 104 U/L (12-78); BUN Blood Urea Nitrogen 14 mg/dL (7-18); Bicarbonate 25 mmol/L (21-32); Bilirubin Direct < 0.1 mg/dL (0-0.2); Glomerular Filtration Rate 55 ml/min (=/>90); Glucose Level 244 mg/dL (74-106); Potassium 4.8 mmol/L (3.5-5.1); Sodium Level 137 mmol/L (136-145)
[2022-06-30 21:45] LABS: SARS-CoV-2 Antigen Rapid Res Negative (Negative)
[2022-06-30 21:50] LABS: Barbiturates NEGATIVE (NEGATIVE); Benzodiazepines POSITIVE (NEGATIVE); Cocaine NEGATIVE (NEGATIVE); METHAMPHETAM POSITIVE (NEGATIVE); Methadone NEGATIVE (NEGATIVE); Opiates NEGATIVE (NEGATIVE); Phencyclidine NEGATIVE (NEGATIVE); THC Cannibis POSITIVE (NEGATIVE)
[2022-06-30 21:50] LABS: AST/SGOT 83 U/L (15-37); Alkaline Phosphatase 91 U/L (45-117); Bilirubin Total 0.2 mg/dL (0.2-1.0); Protein, Total 7.6 g/dL (6.4-8.2)
--- NOTE | 2022-06-30 22:01 | RAD REPORT ---
EXAM DESCRIPTION: CT - Head C Spine Mpr Wo Con - 06/30/2022 9:45 pm CLINICAL HISTORY: Unresponsive. CPR performed TECHNIQUE: Computed axial tomography of the head and cervical spine was obtained. Sagittal and coronal reconstruction was performed. All CT scans are performed using dose optimization technique as appropriate and may include automated exposure control or mA/KV adjustment according to patient size. FINDINGS: An intracranial bleed is not seen. The ventricles are normal in caliber. An extra-axial fl uid collection is not noted. Left aspect of the sphenoid sinus is almost completely opacified compatible sinusitis A cervical fracture is not visualized. No dislocation is noted. IMPRESSION: No acute intracranial abnormality is seen. A cervical fracture is not visualized. If the patient continues to have symptoms to suggest intracra nial /spinal cord pathology then MRI would be recommended
--- NOTE | 2022-06-30 22:02 | RAD REPORT ---
EXAM DESCRIPTION: Mayra Single View06/30/2022 9:27 pm CLINICAL HISTORY: Unresponsive. CPR performed COMPARISON: none FINDINGS: The lungs appear clear of acute infiltrate. The heart is normal size IMPRESSION: No acute abnormalities displayed
--- NOTE | 2022-06-30 22:08 | EDPHYS ---
Physician Documentation [facility] – [place], [place] Name: Kimberley Aquino Age: 26 yrs Sex: Female : 1995 Arrival Date: 06/30/2022 Time: 20:45 Bed 6 Private MD: ED Physician Wally Talbot HPI: 06/30 22:31 This 26 yrs old Female presents to ER via EMS with complaints of possible overdose. ms3 22:31 The patient presents to the emergency department with a possible overdose, Patient ms3 symptoms improved after 6 mg Narcan. Associated signs and symptoms: The patient has no apparent associated signs or symptoms. Severity of symptoms: At their worst the symptoms were severe in the emergency department the symptoms have improved. 26-year-old female presents via [facility] for overdose. EMS states they were called for patient that was not breathing. On arrival [facility] deputies were performing CPR on patient in a ditch. EMS states they did not palpate a pulse on their arrival and CPR was performed for 1 minute until agonal respirations were noted. Patient then had a bradycardia heart beat at 54. Oxygen saturations were initially in the 80s and patient was bagged with BVM and an OPA was placed. A 20-gauge IV was established and left hand. EMS notes patient's temperature to be 95 F. Blood glucose level was 290. EMS states they administered 6 mg of Narcan and patient began to wake up. 4 mg of Zofran was also administered. EMS notes patient has maintained her airway in route to the hospital.. Historical: - Allergies: 21:25 No Known Allergies; as6 - PMHx: 21:25 Endometrosis; Substance Abuse; as6 - Immunization history:: Adult Immunizations unknown. - Social history:: Smoking status: unknown. ROS: 22:31 Unable to obtain ROS due to altered mental status. ms3 Exam: 21:27 ECG was reviewed by the Attending Physician. ms3 22:31 Constitutional: This is a well developed, well nourished patient who is awake, alert, ms3 and in no acute distress. Head/Face: Normocephalic, atraumatic. Eyes: Pupils equal round and reactive to light, extra-ocular motions intact. Lids and lashes normal. Conjunctiva and sclera are non-icteric and not injected. Periorbital areas with no swelling, redness, or edema. Neck: Trachea midline, no cervical lymphadenopathy. Supple, full range of motion without nuchal rigidity, or vertebral point tenderness. No Meningismus. Chest/axilla: Normal chest wall appearance and motion. Nontender with no deformity. Cardiovascular: Regular rate and rhythm with a normal S1 and S2. No gallops, murmurs, or rubs. Normal PMI, no JVD. No pulse deficits. Respiratory: Lungs have equal breath sounds bilaterally, clear to auscultation and percussion. No rales, rhonchi or wheezes noted. No increased work of breathing, no retractions or nasal flaring. Abdomen/GI: Soft, non-tender, with normal bowel sounds. No distension or tympany. No guarding or rebound. No evidence of tenderness throughout. Skin: Warm, dry with normal turgor. Normal color with no rashes, no lesions, and no evidence of cellulitis. MS/ Extremity: Pulses equal, no cyanosis. Neurovascular intact. Full, normal range of motion. 22:31 Neuro: Orientation: to person, Mentation: able to follow commands, Motor: is normal, Sensation: is normal, Gait: not tested. Vital Signs: 20:49 BP 112 / 74; Pulse 94; Resp 19 S; Temp 93.0(R); Pulse Ox 100% on 4 lpm NC; Weight 72.57 as6 kg; 22:00 BP 91 / 61; Pulse 87; Resp 13 S; Pulse Ox 97% on R/A; as6 23:03 BP 85 / 65; Pulse 87; Resp 11 S; Pulse Ox 97% on R/A; as6 23:14 Temp 96.4(C); as6 23:22 BP 86 / 57; Pulse 83; Resp 11 S; Temp 96.3(C); Pulse Ox 96% on R/A; as6 MDM: 20:55 Patient medically screened. ms3 22:31 Data reviewed: vital signs, nurses notes, and as a result, I will admit patient. Data ms3 interpreted: shelter monitor: rate is 103 beats/min, rhythm is regular, sinus tachycardia, with no ectopy, Interpretation: normal rhythm, tachycardia. Counseling: I had a detailed discussion with the patient and/or guardian regarding: the historical points, exam findings, and any diagnostic results supporting the discharge/admit diagnosis, lab results, radiology results, the need for further work-up and treatment in the hospital. ED course: Discussed case with LYUDMILA Yanez, and she accepts patient on behalf of Dr. Silver. Discussed plan for observation with patient and she understands agrees with plan.. 06/30 20:57 Order name: Acetaminophen; Complete Time: 21:57 ms3 06/30 20:57 Order name: BMP; Complete Time: 21:57 ms3 06/30 20:57 Order name: CBC with Diff; Complete Time: 23:44 ms3 06/30 20:57 Order name: Ethanol; Complete Time: 21:57 ms3 06/30 20:57 Order name: Hepatic Function; Complete Time: 21:57 ms3 06/30 20:57 Order name: Protime (+inr); Complete Time: 21:57 ms3 06/30 20:57 Order name: Ptt, Activated; Complete Time: 21:57 ms3 06/30 20:57 Order name: SARS-COV-2 Antigen Rapid; Complete Time: 21:57 ms3 06/30 20:57 Order name: Salicylate; Complete Time: 21:57 ms3 06/30 20:57 Order name: Urine Drug Screen; Complete Time: 21:57 ms3 06/30 21:12 Order name: Urine Dipstick-Ancillary; Complete Time: 21:57 EDMS 06/30 23:41 Order name: Manual Differential; Complete Time: 23:44 EDMS 07/01 03:37 Order name: CBC with Automated Diff; Complete Time: 03:45 EDMS 07/01 03:48 Order name: Comprehensive Metabolic Panel; Complete Time: 03:55 EDMS 06/30 20:57 Order name: EKG; Complete Time: 20:58 ms3 06/30 20:57 Order name: Cardiac monitoring; Complete Time: 21:16 ms3 06/30 20:57 Order name: EKG - Nurse/Tech; Complete Time: 21:33 ms3 06/30 20:57 Order name: IV Saline Lock; Complete Time: 21:16 ms3 06/30 20:57 Order name: Labs collected and sent; Complete Time: 21:16 ms3 06/30 20:57 Order name: O2 Per Protocol; Complete Time: 21:16 ms3 06/30 20:57 Order name: O2 Sat Monitoring; Complete Time: 21:16 ms3 06/30 20:57 Order name: Suicide Screening ([place]); Complete Time: 21:16 ms3 06/30 20:57 Order name: CXR XRAY; Complete Time: 22:03 ms3 06/30 21:04 Order name: Head C Spine Mpr Wo Con; Complete Time: 22:03 EDMS 07/01 03:48 Order name: Phosphorus; Complete Time: 03:55 EDMS 07/01 03:48 Order name: Magnesium; Complete Time: 03:55 EDMS 07/01 13:12 Order name: CBC with Automated Diff EDMS 06/30 20:57 Order name: Urine Dipstick-Ancillary (obtain specimen); Complete Time: 21:16 ms3 EC:27 Rate is 104 beats/min. Rhythm is regular. QRS [place] is Normal. MO interval is normal. ms3 QRS interval is normal. QT interval is normal. Clinical impression: NSR w/ Non-specific ST/T Changes. Interpreted by me. Reviewed by me. Administered Medications: 23:02 Drug: Lactated Ringers Solution 1000 ml Route: IV; Rate: 1000 bolus; Site: right ll3 antecubital; Disposition: 22:36 Chart complete. ms3 Disposition Summary: 06/30/22 22:07 Hospitalization Ordered Hospitalization Status: Observation ms3 Provider: Maggi Silver ms3 Condition: Stable ms3 Problem: new ms3 Symptoms: are unchanged ms3 Bed/Room Type: Standard ms3 Location: [facility] ER HOLD(07/01/22 13:28) Room Assignment: (07/01/22 13:28) eb Diagnosis - Hypothermia, initial encounter ms3 - Cannabis abuse ms3 - Adverse effect of amphetamines, initial encounter ms3 - Adverse effect of benzodiazepines, initial encounter ms3 - Polysubstance abuse ms3 Forms: - Medication Reconciliation Form ms3 - SBAR form ms3 Signatures: Dispatcher [employer] EDTN Kimberley Gonzales RN RN mw Botello, Elizabeth eb Sims, Marcus, DO DO ms3 Evgeny Armstrong RN RN as6 Contreras Walton RN RN ll3 Jaquelin Christian PALeta PABetiC sb4 Corrections: (The following items were deleted from the chart) 21:04 20:58 Head Brain Wo Cont+CT.RAD.BRZ ordered. EDMS EDMS 21:05 20:58 C Spine Wo Con+CT.RAD.BRZ ordered. EDMS EDMS 22:30 22:07 Telemetry/MedSurg (observation) ms3 mw 22:30 22:07 ms3 mw 07/01 12:40 12 22:30 [facility] ER HOLD mw eb 07/01 12:40 12 22:30 ERHOLD- mw eb 07/01 13:28 12:40 Telemetry/MedSurg (observation) eb eb 13:28 12:40 201 eb eb
--- NOTE | 2022-06-30 22:08 | ER ---
Nurse's Notes [facility] Name: Kimberley Aquino Age: 26 yrs Sex: Female : 1995 Arrival Date: 06/30/2022 Time: 20:45 Bed 6 Private MD: Diagnosis: Hypothermia, initial encounter;Cannabis abuse;Adverse effect of amphetamines, initial encounter;Adverse effect of benzodiazepines, initial encounter;Polysubstance abuse Presentation: 06/30 20:49 Chief complaint: EMS states: called out for police preforming CPR on unresponsive pt. as6 pt was unresponsive on scene. ROSC was achieved on scene. pt was agonal breathing. EMS bagged pt. EMS gave 6mg Narcan and 4 mg zofran. on arrival to ER pt is responsive to painful stimuli. Coronavirus screen: At this time, the client does not indicate any symptoms associated with coronavirus-19. Ebola Screen: No symptoms or risks identified at this time. Initial Sepsis Screen: Does the patient meet any 2 criteria? No. Patient's initial sepsis screen is negative. Does the patient have a suspected source of infection? No. Patient's initial sepsis screen is negative. Risk Assessment: Do you want to hurt yourself or someone else? Unable to obtain. Onset of symptoms was June 30, 2022. 20:49 Method Of Arrival: EMS: [facility] as6 20:49 Acuity: KVNG 2 as6 Historical: - Allergies: 21:25 No Known Allergies; as6 - PMHx: 21:25 Endometrosis; Substance Abuse; as6 - Immunization history:: Adult Immunizations unknown. - Social history:: Smoking status: unknown. Screenin:08 Abuse screen: Denies threats or abuse. Denies injuries from another. Nutritional as6 screening: No deficits noted. Tuberculosis screening: No symptoms or risk factors identified. Fall Risk None identified. Assessment: 21:15 General: Appears ill, Behavior is drowsy, restless. Pain: Denies pain. Neuro: Level of as6 Consciousness is lethargic. 21:15 Respiratory: Respiratory effort is even, unlabored. as6 21:20 General: placed on bear hugger . as6 21:45 Neuro: Level of Consciousness is awake, alert, obeys commands, Oriented to person, time.as6 22:04 General: pt denies thoughts of harming self or others . as6 23:23 General: [place] [phone] (grandmother) . as6 Vital Signs: 20:49 BP 112 / 74; Pulse 94; Resp 19 S; Temp 93.0(R); Pulse Ox 100% on 4 lpm NC; Weight 72.57 as6 kg; 22:00 BP 91 / 61; Pulse 87; Resp 13 S; Pulse Ox 97% on R/A; as6 23:03 BP 85 / 65; Pulse 87; Resp 11 S; Pulse Ox 97% on R/A; as6 23:14 Temp 96.4(C); as6 23:22 BP 86 / 57; Pulse 83; Resp 11 S; Temp 96.3(C); Pulse Ox 96% on R/A; as6 ED Course: 20:45 Patient arrived in ED. sb4 20:49 Evgeny Armstrong, TARAS is Primary Nurse. as6 20:55 Wally Talbot DO is Attending Physician. ms3 20:57 Triage completed. as6 21:05 Cortes cath inserted, using sterile technique, 18 Fr., by ia, balloon inflated, to tw5 gravity drainage, urine specimen collected. returned clear yellow urine. Patient tolerated well. 21:18 Inserted saline lock: 20 gauge in right antecubital area, using aseptic technique. zm Blood collected. 21:25 Arm band placed on. as6 21:28 CXR XRAY In Process Unspecified. EDMS 21:33 Acetaminophen Sent. zm 21:33 BMP Sent. zm 21:33 CBC with Diff Sent. zm 21:33 Ethanol Sent. zm 21:33 Hepatic Function Sent. zm 21:33 Protime (+inr) Sent. zm 21:33 Ptt, Activated Sent. zm 21:33 SARS-COV-2 Antigen Rapid Sent. zm 21:33 Salicylate Sent. zm 21:33 Urine Drug Screen Sent. zm 21:46 Head C Spine Mpr Wo Con In Process Unspecified. EDMS 22:06 Maggi Silver MD is Hospitalizing Provider. ms3 22:08 Placed in gown. Bed in low position. Call light in reach. Side rails up X2. Client as6 placed on continuous cardiac and pulse oximetry monitoring. NIBP monitoring applied. 23:14 No provider procedures requiring assistance completed. Patient admitted, IV remains in as6 place. Administered Medications: 23:02 Drug: Lactated Ringers Solution 1000 ml Route: IV; Rate: 1000 bolus; Site: right ll3 antecubital; Medication: 22:08 VIS not applicable for this client. as6 Outcome: 22:07 Decision to Hospitalize by Provider. ms3 23:15 Admitted to ER Hold. Please see [facility] for further documentation. as6 23:15 Condition: stable 23:15 Instructed on the need for admit. 07/01 14:19 Patient left the ED. iw Signatures: Dispatcher [employer] Heide Angulo, RN RN iw Wally Talbot, DO DO ms3 Zayra Casillas tw5 Evgeny Armstrong RN RN as6 Contreras Walton RN RN ll3 Rahel Calix Sophia, PA-C PA-C sb4
--- NOTE | 2022-06-30 22:53 | P.HP ---
Certification for Inpatient Patient admitted to: Observation With expected LOS: <2 Midnights Patient will require the following post-hospital care: None Practitioner: I am a practitioner with admitting privileges, knowledge of patient current condition, hospital course, and medical plan of care. Services: Services provided to patient in accordance with Admission requirements found in Title 42 Section 412.3 of the Code of Federal Regulations Patient History Date of Service: 06/30/22 Reason for admission: Benzo OD History of Present Illness: Patient is a 26 year old female with past medical history of endometriosis and substance abuse who presented to the ED via EMS after being found down. Per EMS, they found patient in a car passed out on the side of the road. They initiated CPR, started bagging, gave 6 mg narcan, and achieved ROSC. Patient was responsive only to painful stimuli upon arrival. Temp was 93F, 100% on 4L NC. Labs significant for WBC 26, Cr 1.37, AST 83, ALT 104. UDS positive for methamphetamines, benzodiazepines, and THC. Etoh negative. Patient is a known meth user and apparently is known to take xanax with alcohol. KNOCKDOWN MAN does not show active rx for xanax. Patient has slowly become more awake. She denies thoughts of hurting herself or others. ED provider wishes to admit patient for observation. Allergies No Known Drug Allergies Allergy (Verified 06/07/15 16:22) Unknown No Known Allergie Allergy (Uncoded 01/24/17 02:05) Unknown Home medications list reviewed: Yes Home Medications: Codeine/APAP [Tylenol W/Codeine #3 tab] 1 tab PO Q6HP PRN 06/07/15 Methylergonovine [Methergine] 0.2 mg PO Q4HP #10 tab 06/08/15 - Past Medical/Surgical History Diabetic: No -: Substance abuse -: Endometriosis -: Tonsillectomy -: D&C Psychosocial/ Personal History: Patient lives at home. She has a boyfriend. - Family History Mother -: Other (see notes) Notes: hemorrage after delivery - Social History Smoking Status: Current some day smoker Alcohol use: No CD- Drugs: No Caffeine use: Yes Place of Residence: Home Review of Systems Unremarkable Physical Examination - Physical Exam General: In no apparent distress, Other (Sleepy but arousable) HEENT: Atraumatic, PERRLA, EOMI, Sclerae nonicteric Neck: Supple, 2+ carotid pulse no bruit, No LAD, Without JVD or thyroid abnormality Respiratory: Clear to auscultation bilaterally, Normal air movement Cardiovascular: Regular rate/rhythm, Normal S1 S2 Gastrointestinal: Normal bowel sounds, No tenderness Musculoskeletal: No tenderness Integumentary: No rashes Neurological: Normal speech, Normal strength at 5/5 x4 extr, Normal tone, Normal affect Urinary: Cortes catheter - Studies Laboratory Data (last 24 hrs) 06/30/22 21:10: PT 11.9, INR 1.08, APTT 25.4 06/30/22 21:10: WBC 26.20 H*, Hgb 13.8, Hct 41.3, Plt Count 420 H 06/30/22 21:10: Sodium 137, Potassium 4.8, BUN 14, Creatinine 1.37 H, Glucose 244 H, Total Bilirubin 0.2, AST 83 H, ALT 104 H, Alkaline Phosphatase 91 Assessment and Plan - Problems (Diagnosis) (1) Benzodiazepine (tranquilizer) overdose Current Visit: Yes Status: Acute Qualifiers: Encounter type: initial encounter (2) Methamphetamine abuse Current Visit: Yes Status: Chronic (3) Hypothermia Current Visit: Yes Status: Acute Qualifiers: Encounter type: initial encounter Qualified Code(s): T68.XXXA - Hypothermia, initial encounter (4) Leukocytosis Current Visit: Yes Status: Acute Qualifiers: Leukocytosis type: unspecified Qualified Code(s): D72.829 - Elevated white blood cell count, unspecified (5) MIGUEL (acute kidney injury) Current Visit: Yes Status: Acute - Plan Patient is admitted for observation. Slowly becoming more responsive. Monitor vitals closely- patient has been hypothermic and borderline hypotensive. Continue IV fluids with bear hugger. She denies current SI/HI. Monitor and replete electrolytes per protocol. Reconcile and continue home medications. DVT prophylaxis. Full code. Discharge Plan: Home Plan to discharge in: 24 Hours - Advance Directives Does patient have a Living Will: No Does patient have a Durable POA for Healthcare: No - Code Status/Comfort Care Code Status Assessed: Yes Code Status: Full Code Critical Care: No Time Spent Managing Pts Care (In Minutes): 50
[2022-06-30] MEDS ORDERED: Ringers Lactate 1,000 ML IV ONE (22:57)
[2022-06-30 23:40] LABS: Blood Morphology Comment NOT SEEN (NOT SEEN); Platelet Estimate INCR
[2022-06-30] MEDS ORDERED: ONDANSETRON 4 MG/2 ML VIAL IV PRN (23:46)
[2022-06-30] MEDS ORDERED: ACETAMINOPHEN 325 MG TABLET PO PRN (23:47)
[2022-06-30] MEDS ORDERED: THIAMINE 200 MG/2 ML INJ ONE (23:53)
[2022-06-30] MEDS ORDERED: FOLIC ACID 5 MG/ML VIAL ONE (23:54)
[2022-06-30] MEDS ORDERED: MULTIVITAMINS 10 ML VIAL (INJ) IV ONE (23:54)
[2022-06-30] MEDS ORDERED: NA CHLORIDE 0.9% 1,000 ML ONE (23:54)
[2022-07-01 01:40] VITALS: BMI 25.0
[2022-07-01 03:13] LABS: Hematocrit 33.1 % (36.0-45.0); Lymphocytes % 9.6 % (15.3-44.8); MCV 90.4 fL (80-100); MPV 8.6 fL (7.6-11.3); RBC Red Blood Cell Count 3.66 M/uL (3.86-4.86)
[2022-07-01 03:37] LABS: Albumin 3.2 g/dL (3.4-5.0); Bilirubin Total 0.3 mg/dL (0.2-1.0); Magnesium 1.8 mg/dL (1.8-2.4); Phosphorus 4.2 mg/dL (2.5-4.9); Potassium 4.4 mmol/L (3.5-5.1)
[2022-07-01] MEDS: NA CHLORIDE 0.9% 1,000 ML IV SCH ×2 (05:32→13:32)
[2022-07-01] MEDS ORDERED: NA CHLORIDE 0.9% 1,000 ML ONE (05:35)
[2022-07-01 08:38] VITALS: O2SAT 98
[2022-07-01] MEDS ORDERED: FOLIC ACID 1 MG, MULTIVITAMINS INJ 10 ML, THIAMINE HCL 100 MG in NA CHLORIDE 0.9% 1,000 ML IV SCH (09:00)
[2022-07-01] MEDS ORDERED: INFLUENZA VACCINE (for 6+ mo) 0.5 ML DOSE IMVAC ONE (10:00)
[2022-07-01] MEDS ORDERED: NA CHLORIDE 0.9% 1,000 ML IV ONE (10:09)
--- NOTE | 2022-07-01 10:15 | P.PN ---
Date of Service: 07/01/22 Mother, Trinity Lopez,
[2022-07-01 13:11] LABS: Absolute Lymphocytes (CBC) 1.7 K/uL (0.7-4.9); Hematocrit 31.3 % (36.0-45.0); Lymphocytes % 9.8 % (15.3-44.8); MCV 91.4 fL (80-100); RBC Red Blood Cell Count 3.43 M/uL (3.86-4.86)
[2022-07-01] MEDS ORDERED: ACETAMINOPHEN 325 MG TABLET ONE (13:19)
--- NOTE | 2022-07-01 13:25 | P.DS ---
Discharge Date: 07/01/22 Disposition: ROUTINE DISCHARGE Discharge Condition: GOOD Reason for Admission: Benzo OD Brief History of Present Illness: Patient is a 26 year old female with past medical history of endometriosis and substance abuse who presented to the ED via EMS after being found down. Per EMS, they found patient in a car passed out on the side of the road. They initiated CPR, started bagging, gave 6 mg narcan, and achieved ROSC. Patient was res ponsive only to painful stimuli upon arrival. Temp was 93F, 100% on 4L NC. Labs significant for WBC 26, Cr 1.37, AST 83, ALT 104. UDS positive for methamphetamines, benzodiazepines, and THC. Etoh negative. Patient is a known meth user and apparently is known to take xanax with alcohol. 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 Patient has slowly become more awake. She denies thoughts of hurting herself or others. ED provider wishes to admit patient for observation. Hospital Course: Patient has a history of depressive disorder and she follows up at [facility]. She takes anxiolytics but has not been back to [facility] in quite a while so she apparently got this from someone else. She believes it was laced with something. We will go ahead and talk to her mother who states that she will be responsible for prescribing or dispensing the medications to her daughter. I did prescribe her her pain medication that she is prescribed as well as the Xanax that helps with her anxiety. I do recommend her seeing a psychiatrist and a pain specialist in the near future. According to the mother, she has had a history of multiple mental disorders. He just has not been very compliant with following up. She has a 6-year-old daughter that the patient states she has no desire to hurt herself because she wants to take care of her daughter. She has no desire to harm anyone else. She just uses anxiety medications to help her relax and get some rest. However, she did admit to borrowing this from someone else where she feels like this could have been laced which resulted in her sy mptoms. The daughter states that she is okay with her mother dispensing the medication. At this time I will discharge her home as she has medically stable. Her white count was elevated but it is coming down. No signs of infection but I will go ahead and give her a few days of antibiotics. If she does start having fever she is advised to come back to the emergency room. At this time she is stable for discharge home. Vital Signs/Physical Exam: Temp Pulse Resp BP Pulse Ox 99.1 F 83 14 100/55 L 97 07/01/22 08:00 07/01/22 08:00 07/01/22 08:00 07/01/22 08:00 07/01/22 08:00 Laboratory Data at Discharge: WBC 17.70 K/uL (4.3-10.9) H 07/01/22 12:59 Hgb 10.5 g/dL (12.0-15.0) L 07/01/22 12:59 Hct 31.3 % (36.0-45.0) L 07/01/22 12:59 Plt Count 301 K/uL (152-406) 07/01/22 12:59 PT 11.9 SECONDS (9.5-12.5) 06/30/22 21:10 INR 1.08 06/30/22 21:10 APTT 25.4 SECONDS (24.3-36.9) 06/30/22 21:10 Sodium 138 mmol/L (136-145) 07/01/22 03:06 Potassium 4.4 mmol/L (3.5-5.1) 07/01/22 03:06 BUN 15 mg/dL (7-18) 07/01/22 03:06 Creatinine 0.89 mg/dL (0.55-1.3) 07/01/22 03:06 Glucose 101 mg/dL (74-106) 07/01/22 03:06 Phosphorus 4.2 mg/dL (2.5-4.9) 07/01/22 03:06 Magnesium 1.8 mg/dL (1.8-2.4) 07/01/22 03:06 Total Bilirubin 0.3 mg/dL (0.2-1.0) 07/01/22 03:06 AST 47 U/L (15-37) H 07/01/22 03:06 ALT 75 U/L (12-78) 07/01/22 03:06 Alkaline Phosphatase 67 U/L (45-117) D 07/01/22 03:06 Home Medications: Methylergonovine [Methergine*] 0.2 mg PO Q4HP #10 tab 06/08/15 ALPRAZolam [Xanax] 0.5 mg PO TID PRN #30 tab 07/01/22 Cefdinir [Cefdinir*] 300 mg PO BID #14 cap 07/01/22 Codeine/APAP [Tylenol #3*] 1 tab PO Q6HP PRN #30 tab 07/01/22 New Medications: Cefdinir [Cefdinir*] 300 mg PO BID #14 cap Codeine/APAP [Tylenol #3*] 1 tab PO Q6HP PRN #30 tab PRN Reason: Pain ALPRAZolam [Xanax] 0.5 mg PO TID PRN #30 tab PRN Reason: Anxiety Physician Discharge Instructions: -DC IV and DC home -Follow-up with PCP in 1 to 2 weeks -Follow-up with pain management and psychiatrist in 1 to 2 weeks -Please call Dr. Silver at [phone] if any questions regarding hospital stay -Please call nursing station at [phone] if any nursing or medication questions -Return to the emergency room if symptoms worsen Diet: Regular Activity: Fall precautions Followup: Unknown,U [Primary Care Provider] -
[2022-07-01 20:15] VITALS: BP 108/78; TEMP 98.9
--- NOTE | 2022-07-02 13:50 | EKG ---
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
== END 2022-07-01 14:20 | disposition home or self-care (01) ==
LOC: ER 20:43 → ERHOLD 22:22
PROVIDERS: ADMIT Hospitalist; ATTEND Hospitalist
DX: T42.4X1A Poisoning by benzodiazepines, accidental (unintentional), initial encounter (principal); T68.XXXA Hypothermia, initial encounter; F15.10 Other stimulant abuse, uncomplicated; Y92.9 Unspecified place or not applicable; F32.A Depression, unspecified; F41.9 Anxiety disorder, unspecified; F12.10 Cannabis abuse, uncomplicated; F19.10 Other psychoactive substance abuse, uncomplicated; Z20.822 Contact with and (suspected) exposure to COVID-19; Z23 Encounter for immunization
CPT/HCPCS: 36415; 70450; 71045; 72125; 80048; 80053; 80076; 80307; 80320; 80329; 81003; 83735; 84100; 85025; 85610; 85730; 87811; 93005; G0378; J3411; J7030; J7120

== ENCOUNTER 2024-04-13 15:18 | Emergency (ER) | payer SELFPAY ==
--- OUTSIDE RECORDS SUMMARY | 2024-04-13 15:22 | XMS REPORT | Continuity of Care Document ---
Author Name Unknown Address [address] [facility] [address] [place] [address] [facility] thconnect Address [address] [facility] [address] [place] [address] Care Team Providers Care Mainframe Systems Administrator Name Role Phone Alvarado Dumont Attending Clinician Unavailable Alvarado Dumont Attending Clinician Unavailable Alvarado Dumont MD Attending Clinician Elly Petersen Attending Clinician Tresa Mitchell MD Attending Clinician [phone] Alvarado Dumont Admitting Clinician Unavailable Payers Payer Name Policy Type Policy Number Effective Date Expirati on Date Source Problems Condition Name Condition Details Condition Category Status Onset Date Resolution Date Last Treatment Date Treating Clinician Comments Source Overweight Overweight Disease Active 2013-07 00:00: 00 Overview: ICD10 Diagnosis Term 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 [facility] Tobacco use disorder Tobacco use disorder Disease Active 2013-07 00:00: 00 [facility] Allergies, Adverse Reactions, Alerts Allergy Name Allergy Type Status Severity Reaction(s) Onset Date Inactive Date Treating Clinician Comments Source No Known Allergie s DA Active U 2015-07 00:00: 00 [facility] No Known Medicati on Allergie s Drug Active [facility] No Known Medicati on Allergie s Drug Active [facility] No Known Medicati on Allergie s Drug Active [facility] No Known Medicati on Allergie s Drug Active [facility] No Known Medicati on Allergie s Drug Active [facility] No Known Medicati on Allergie s Drug Active [facility] Social History Social Habit Start Date Stop Date Quantity Comments Source History of tobacco use Cigarette Smoker [facility] Tobacco Comment 2015-04-27 00:00:00 2015-04-27 00:00:00 smokes 5-6 cigarettes per day [facility] Smoking Status Start Date Stop Date Source Current every day smoker 2019-04-02 00:00:00 [facility] Medications Ordered Medication Name Filled Medication Name Start Date Stop Date Current Medication? Ordering Clinician Indication Dosage Frequency Signature (SIG) Comments Components Source acetaminoph en (TYLENOL) tablet 650 mg 04-03 10:00: 00 04-03 08:58 :00 No 650mg 650 mg, Oral, ONCE, 1 dose, Sat04/03/19 at 0500, [facility] ziprasidone (GEODON) injection 20 mg 04-03 02:21: 00 04-03 02:33 :00 No 20mg 20 mg, Intramuscu lar, ONCE, 1 dose, Fina 04/02/19 at 2130, [facility] melatonin (MELATIN) tablet 3 mg 04-03 02:00: 00 Yes 3mg 3 mg, Oral, QHS, First dose on Sat04/02/19 at 2100, Until Discontinu ed, Routine [facility] acetaminoph en (TYLENOL) tablet 650 mg 04-03 01:43: 00 04-03 02:31 :00 No 650mg 650 mg, Oral, ONCE, 1 dose, Fina 04/02/19 at 2045, [facility] ibuprofen (IBU) tablet 600 mg 04-02 23:45: 00 04-02 22:42 :00 No 600mg 600 mg, Oral, ONCE, 1 dose, [facility] 04/02/19 at 1845, [facility] ziprasidone (GEODON) injection 20 mg 04-02 19:00: 00 04-02 17:53 :00 No 20mg 20 mg, Intramuscu lar, ONCE, 1 dose, [facility] 04/02/19 at 1400, [facility] nicotine (NICODERM) 21 mg/24 hr patch 1 Patch 04-02 17:15: 00 Yes 1{patch } 1 Patch, Topical, Administer over 24 Hours, Q24H, First dose on Fina 04/02/19 at 1215, Until Discontinu ed, Routine [facility] LORazepam (ATIVAN) tablet 2 mg 04-02 16:14: 00 04-02 16:16 :00 No 2mg 2 mg, Oral, ONCE, 1 dose, [facility] 04/02/19 at 1115, [facility] acetaminoph en (TYLENOL) tablet 650 mg 04-02 11:15: 00 04-02 10:11 :00 No 650mg 650 mg, Oral, ONCE, 1 dose, [facility] 04/02/19 at 0615, [facility] ziprasidone (GEODON) injection 20 mg 04-01 23:30: 00 04-01 22:26 :00 No 20mg 20 mg, Intramuscu lar, ONCE, 1 dose, Sat04/01/19 at 1830, [facility] [id number]- folic acid (PRENATA) 29 mg iron- 1 mg Chew 04-27 00:00: 00 Yes [id number] 1{tbl} Take 1 Tab by mouth daily. [facility] Vital Signs Vital Name Observation Time Observation Value Comments S ource Height/Length Measured 2021-08-15 11:27:54 175.26 cm Weight Dosing 2021-08-15 11:27:54 63.50 kg Height/Length Measured 2021-08-15 11:26:41 175.26 cm Weight Dosing 2021-08-15 11:26:41 63.50 kg Height/Length Measured 2021-08-15 11:20:53 175.26 cm Weight Dosing 2021-08-15 11:20:53 63.50 kg Height/Length Measured 2021-08-15 11:19:46 175.26 cm Weight Dosing 2021-08-15 11:19:46 63.50 kg Height/Length Measured 2021-08-15 09:57:40 175.26 cm Weight Dosing 2021-08-15 09:57:40 63.50 kg Height/Length Measured 2021-08-15 08:55:40 175.26 cm Weight Dosing 2021-08-15 08:55:40 63.50 kg Systolic blood pressure 2019-04-03 08:59:31 103 mm[Hg] [facility] Diastolic blood pressure 2019-04-03 08:59:31 61 mm[Hg] [facility] Heart rate 2019-04-03 08:59:31 92 /min [facility] Respiratory rate 2019-04-03 08:59:31 18 /min [facility] Oxygen saturation in Arterial blood by Pulse oximetry 2019-04-03 08:59:31 99 /min [facility] Body temperature 2019-04-02 22:23:09 36.39 [facility] Body weight 2019-04-01 21:02:00 59.013 kg [facility] Systolic blood pressure 2019-04-03 08:59:31 103 mm[Hg] [facility] Diastolic blood pressure 2019-04-03 08:59:31 61 mm[Hg] [facility] Heart rate 2019-04-03 08:59:31 92 /min [facility] Respiratory rate 2019-04-03 08:59:31 18 /min [facility] Oxygen saturation in Arterial blood by Pulse oximetry 2019-04-03 08:59:31 99 /min [facility] Body temperature 2019-04-02 22:23:09 36.39 [facility] Body weight 2019-04-01 21:02:00 59.013 kg [facility] Procedures Procedure Date / Time Performed Performing Clinician Source COMP. METABOLIC PANEL (09646) 2019-04-01 21:54:00 Elly Claire [facility] SALICYLATE 2019-04-01 21:54:00 Elly Claire [facility] ETHANOL 2019-04-01 21:54:00 Elly Claire [facility] CBC WITH DIFFERENTIAL 2019-04-01 21:54:00 Elly Claire [facility] URINALYSIS 2019-04-01 21:54:00 Elly Claire [facility] POCT TEST 2019-04-01 21:54:00 Elly Claire [facility] ADC / LCC - DRUG SCREEN TRIAGE 2019-04-01 21:54:00 Elly Claire [facility] EKG-12 LEAD 2019-04-01 21:35:00 Elly Claire [facility] NOTICE OF PRIVACY PRACTICES 2019-04-01 20:53:12 Doctor Unassigned, [place] [facility] CONSENT/REFUSAL FOR DIAGNOSIS AND TREATMENT 2019-04-01 20:48:00 Doctor Unassigned, [place] [facility] Encounters Start Date/Time End Date/Time Encounter Type Admission Type Attending [facility] Care Facility Care Department Encounter ID Source 2019-04-03 04:47:00 2019-04-20 13:30:00 Inpatient 1 Alvarado Dumont [facility] PSY [id number] [facility] 2019-04-03 13:11:50 2019-04-03 23:59:00 Hospital Encounter Alvarado Dumont [facility] [id number] 2019-04-03 13:11:50 2019-04-03 23:59:00 Hospital Encounter Alvarado Dumont [facility] [id number] [facility] 2019-04-01 16:06:04 2019-04-03 04:05:00 Emergency Elly Claire [place] [facility] [id number] 2019-04-01 16:06:04 2019-04-03 04:05:00 Emergency Elly Claire [place] [facility] [id number] [facility] Results Test Description Test Time Test Comments Results Result Co mments Source Thyroid Stimulating [id number] 09:14:49* Test Item Value Reference Range Interpretation Comme nts TSH (test code = TSH) 1.120 mIU/mL 0.270-4.200 Lipid [id number] 09:01:23* Test Item Value Reference Range Interpretation Comme nts Cholesterol Total (test code = Cholesterol Total) 155 mg/dL 0-200 RISK OF HEART DISEASEPublished by [employer] Heart Association Analyte Optimal Borderline Increased RiskCHOL <200 200-239 >240TRIG <150 150-199 >200HDL Male >60 <40HDL Female >60 <50LDL <100 130-159 >160LDL Near optimal is 100-129 Triglycerides (test code = Triglycerides) 48 mg/dL 9-200 HDL (test code = HDL) 70 mg/dL 50-60 H LDL (test code = LDL) 76 mg/dL 0-130 The equation being used in this calculation is LDL = (Chol - HDL) - (Trig / 5) VLDL (test code = VLDL) 10 mg/dL 5-40 The equation gordo ng used in this calculation is VLDL = Trig / 5 Chol/HDL (test code = Chol/HDL) 2.2 ratio 0.0-4.4 LDL/HDL Ratio (test code = LDL/HDL Ratio) 1 N The equati on being used in this calculation is LDL/HDL Ratio=LDL Calc/HDL Chol [id number] 22:33:00* Test Item Value Reference Range Interpretation Comme nts ALCOHOL (test code = 5437881505) <10 mg/dL KHOA (test code = KHOA) <10 Yzwhjjmr26-290 Toxic>100 Depression of NETWORK PROFESSIONAL>400 Fatalities Reported [facility] [id number] 22:33:00* Test Item Value Reference Range Interpretation Comme nts ACETAMINOP (test code = 6643326099) <10.0 10-30 L KHOA (test code = KHOA) Toxic: Greater shweta n 200 ug/mL @ 4 hour post ingestion or greater than 50 ug/mL @ 12 hour post ingestion Lab Interpretation (test code = 80922-9) [facility] 22:33:00* Test Item Value Reference Range Interpretation Comme nts SALICYLATE (test code = 4830789393) <10 mg/L KHOA (test code = KHOA) Therapeutic Range: ? Analgesic and Antipyretic Use? 20-100 mg/L? Anti-Inflammatory Use? 100-250 mg/LToxic Range:? Greater than 300 mg/L [facility]. METABOLIC PANEL (01302)2019-04-01 22:31:00* Test Item Value Reference Range Interpretation Comme nts NA (test code = 6007591097) 143 mmol/L 135-145 K (test code = 3367614121) 4.4 mmol/L 3.5-5 CL (test code = 9335154357) 105 mmol/L 98-108 CO2 TOTAL (test code = 4194503104) 29 mmol/L 23-31 AGAP (test code = 6638270774) 2-16 BUN (test code = 6851184603) 9 mg/dL 7-23 GLUCOSE (test code = 8911150803) 84 mg/dL 70-110 CREATININE (test code = 0970977572) 0.51 mg/dL 0.5-1.04 TOTAL BILI (test code = 3795314573) 0.2 mg/dL 0.1-1.1 CALCIUM (test code = 6449365778) 10.2 mg/dL 8.6-10.6 T PROTEIN (test code = 7560525402) 7.9 g/dL 6.3-8.2 ALBUMIN (test code = 1218203455) 4.9 g/dL 3.5-5 ALK PHOS (test code = 8913078394) 66 U/L 34-122 ALT(SGPT) (test code = 4825309775) 53 U/L 9-51 H AST(SGOT) (test code = 6503703447) 50 U/L 13-40 H eGFR Calculation (Non-) (test code = 7467195721) mL/min/1.73m2 eGFR Calculation () (test code = 9642732645) mL/min/1.73m2 KHOA (test code = KHOA) Association of [...] or abnormalities in imaging tests). Lab Interpretation (test code = 93052-3) Abnormal [facility] - DRUG SCREEN [id number] 22:25:00* Test Item Value Reference Range Interpretation Comme nts BENZO U (test code = 4756902993) Negative Negative JAMES U (test code = 6384520272) Negative Negative AMPHET (test code = 7108201963) Negative Negative THC (test code = 0234687858) Negative Negative METHADONE (test code = 5327205620) Negative Negative Meth U (test code = 9213925884) Presumptive Positive Negative A OPIATES (test code = 5967274310) Negative Negative Cocaine Metabolite (test code = 8120966881) Negative Negative PROPOXY (test code = 1777234439) Negative Negative Tric U (test code = 0589616600) Negative Negative PCP (test code = 0734602797) Negative Negative OXYCOD (test code = 0691259039) Negative Negative KHOA (test code = KHOA) Urine Drug [...] employment testing, legal testing). Lab Interpretation (test code = 78335-6) [facility] 22:22:00* Test Item Value Reference Range Interpretation Comme nts APPEARANCE (test code = 4580529282) Clear Clear COLOR (test code = 4387197403) Colorless Yellow A PH (test code = 5776874361) 4.8-8.0 SP GRAVITY (test code = 8531919120) <=1.005 1.003-1.030 GLU U QUAL (test code = 2017118530) Negative Negative BLOOD (test code = 1343638219) Negative Negative KETONES (test code = 5409436264) Negative Negative PROTEIN (test code = 2887-8) Negative Negative UROBILIN (test code = 7325299147) 0.2 mg/dL See_Comment [Automated [employer] [facility]] The system which generated this result transmitted reference range: 0-1.0 mg/dL. The reference range was not used to interpret this result as normal/abnormal. BILIRUBIN (test code = 2640842385) Negative Negative NITRITE (test code = 8748080875) Negative Negative LEUK JAMI (test code = 2833355048) Negative Negative RBC/HPF (test code = 4331363725) See_Comment [Automated [employer] [facility]] The system which generated this result transmitted reference range: 0 - 3 HPF. The reference range was not used to interpret this result as normal/abnormal. WBC/HPF (test code = 6549053463) See_Comment [Automated messa ge] The system which generated this result transmitted reference range: 0 - 5 HPF. The reference range was not used to interpret this result as normal/abnormal. BACTERIA (test code = 1074984114) Negative Negative Lab Interpretation (test code = 08859-6) Abnormal [facility] WITH [id number] 22:11:00* Test Item Value Reference Range Interpretation Comme nts WBC (test code = 6690-2) See_Comment [Automated messa ge] The system which generated this result transmitted reference range: 4.30 - 11.10 10*3/?L. The reference range was not used to interpret this result as normal/abnormal. RBC (test code = 789-8) See_Comment [Automated messa ge] The system which generated this result transmitted reference range: 3.93 - 5.25 10*6/?L. The reference range was not used to interpret this result as normal/abnormal. HGB (test code = 718-7) 14.0 g/dL 11.6-15 HCT (test code = 4544-3) 42.7 % 35.7-45.2 MCV (test code = 787-2) 91.8 fL 80.6-95.5 MCH (test code = 785-6) 30.1 pg 25.9-32.8 MCHC (test code = 786-4) 32.8 g/dL 31.6-35.1 RDW-SD (test code = 99484-5) 43.6 fL 39-49.9 RDW-CV (test code = 788-0) 13.0 % 12-15.5 PLT (test code = 777-3) See_Comment H [Automated messa ge] The system which generated this result transmitted reference range: 166 - 358 10*3/?L. The reference range was not used to interpret this result as normal/abnormal. MPV (test code = 49958-7) 10.7 fL 9.5-12.9 NRBC/100 WBC (test code = 9276547331) See_Comment [Automated [employer] ssage] The system which generated this result transmitted reference range: 0.0 - 10.0 /100 WBCs. The reference range was not used to interpret this result as normal/abnormal. NRBC x10^3 (test code = 8873188224) <0.01 See_Comment [Automated messa ge] The system which generated this result transmitted reference range: 10*3/?L. The reference range was not used to interpret this result as normal/abnormal. GRAN MAT (NEUT) % (test code = 770-8) 57.4 % IMM GRAN % (test code = 7171600573) 0.40 % LYMPH % (test code = 736-9) 32.1 % MONO % (test code = 5905-5) 8.5 % EOS % (test code = 713-8) 0.8 % BASO % (test code = 706-2) 0.8 % GRAN MAT x10^3(ANC) (test code = 4971616476) 5.55 10*3/uL 1.88-7.09 IMM GRAN x10^3 (test code = 7165661010) 0.04 10*3/uL 0-0.06 LYMPH x10^3 (test code = 731-0) 3.10 10*3/uL 1.32-3.29 MONO x10^3 (test code = 742-7) 0.82 10*3/uL 0.33-0.92 EOS x10^3 (test code = 711-2) 0.08 10*3/uL 0.03-0.39 BASO x10^3 (test code = 704-7) 0.08 10*3/uL 0.01-0.07 H Lab Interpretation (test code = 83319-7) [facility] [id number] 21:54:00* Test Item Value Reference Range Interpretation Comme nts POCT PREG (test code = 1605) Negative On board controls acceptable with C Line (test code = 3574) Present POCT PREG LOT # (test code = 3575) HCG [id number] POCT PREG TEST DATE ( test code = 3576) 07/28/2020 Lab Interpretation (test cod e = 25313-8) Normal [facility]ET[facility]IN[facility]HEN2019-09-01 21:29:00* Test Item Value Reference Range Interpretation Comme nts ACETAMINOPHEN (test code = ACET) < 2.0 mcG/ML 10.0-30.0 L Last Dose Date: 03/29/19Last Dose Time: [id number] 21:27:00* Test Item Value Reference Range Interpretation Comme nts SALICYLATE (test code = DARVIN) < 1.7 MG/DL 2.8-20.0 THER L HCG SERUM [id number] 08:38:00* Test Item Value Reference Range Interpretation Comme nts HCG SERUM QUAL (test code = HCGQL) SERUM NEGATIVE SCREEN NEGATIVE UA RFLX MICR CULT IF [id number] 19:13:00* Test Item Value Reference Range Interpretation Comme nts UA COLOR (test code = COLU) YELLOW discript YEL/STRAW UA APPEARANCE (test code = APPU) CLEAR discript CLEAR UA GLUCOSE DIPSTICK (test code = DGLUU) NEGATIVE mg/dL NEG UA BILIRUBIN DIPSTICK (test code = BILU) NEGATIVE mg/dL NEG UA KETONE DIPSTICK (test code = KETU) NEGATIVE mg/dL NEG UA SPECIFIC GRAVITY (test code = SGU) 1.025 SG 1.005-1.030 UA BLOOD DIPSTICK (test code = BETTY) NEGATIVE mg/DL NEG UA PH DIPSTICK (test code = IDA) 6.0 pH UNITS 5.0-7.0 UA PROTEIN DIPSTICK (test code = PROU) TRACE mg/dL NEG A UA UROBILINIOGEN DIPSTICK (test code = URO) 0.2 mg/dL <2.0 UA NITRITE DIPSTICK (test code = HOLLI) NEGATIVE SCREEN NEG UA LEUKOCYTE ESTERASE DIPSTICK (test code = LEUU) NEGATIVE Leuk/mcL NEGATIVE UA WBC (test code = WBCU) 0-1 #WBC/HPF 0-3 UA RBC (test code = RBCU) 0-1 #RBC/HPF 0-3 UA BACTERIA (test code = BACU) TRACE /HPF NONE-TRACE UA SQUAMOUS CELLS (test code = SQU) TRACE /HPF NONE UA CULTURE NEEDED? (test code = UACULT) Criteria Culture CHK SOURCE OF URINE: MIDSTREAMIndication for culture: Suprapubic PainDRUGS OF ABUSE SCREEN [id number] 19:13:00* Test Item Value Reference Range Interpretation Comme nts URN COCAINE (test code = COCAURN) NEGATIVE SCcutoff <300 NG/ML URN CANNABINOIDS (test code = CANNABURN) NEGATIVE SCcutoff <50 NG/ML URN AMPHETAMINE (test code = AMPHETURN) POSITIVE SCcutoff <1000 NG/ML A URN BARBITURATE (test code = BARBITURN) NEGATIVE SCcutoff <200 NG/ML URN BENZODIAZEPINE (test code = BENZOURN) NEGATIVE SCcutoff <200 NG/ML URN OPIATES (test code = OPIATURN) NEGATIVE SCcutoff <2000 NG/ML URN PHENCYCLIDINE (PCP) (test code = PHENCURN) NEGATIVE SCcutoff <25 NG/ML URN METHADONE (test code = METHAURN) NEGATIVE SCcutoff <300 NG/ML SOURCE OF URINE: MIDSTREAMIndication for culture: Suprapubic PainUA RFLX MICR CULT IF [id number] 19:13:00* Test Item Value Reference Range Interpretation Comme nts UA COLOR (test code = COLU) YELLOW discript YEL/STRAW UA APPEARANCE (test code = APPU) CLEAR discript CLEAR UA GLUCOSE DIPSTICK (test code = DGLUU) NEGATIVE mg/dL NEG UA BILIRUBIN DIPSTICK (test code = BILU) NEGATIVE mg/dL NEG UA KETONE DIPSTICK (test code = KETU) NEGATIVE mg/dL NEG UA SPECIFIC GRAVITY (test code = SGU) 1.025 SG 1.005-1.030 UA BLOOD DIPSTICK (test code = BETTY) NEGATIVE mg/DL NEG UA PH DIPSTICK (test code = IDA) 6.0 pH UNITS 5.0-7.0 UA PROTEIN DIPSTICK (test code = PROU) TRACE mg/dL NEG A UA UROBILINIOGEN DIPSTICK (test code = URO) 0.2 mg/dL <2.0 UA NITRITE DIPSTICK (test code = HOLLI) NEGATIVE SCREEN NEG UA LEUKOCYTE ESTERASE DIPSTICK (test code = LEUU) NEGATIVE Leuk/mcL NEGATIVE UA WBC (test code = WBCU) 0-1 #WBC/HPF 0-3 UA RBC (test code = RBCU) 0-1 #RBC/HPF 0-3 UA BACTERIA (test code = BACU) TRACE /HPF NONE-TRACE UA SQUAMOUS CELLS (test code = SQU) TRACE /HPF NONE UA CULTURE NEEDED? (test code = UACULT) NO, WBC<10 Criteria Culture CHK SOURCE OF URINE: MIDSTREAMIndication for culture: Suprapubic PainDRUGS OF ABUSE SCREEN [id number] 19:13:00* Test Item Value Reference Range Interpretation Comme nts URN COCAINE (test code = COCAURN) NEGATIVE SCcutoff <300 NG/ML URN CANNABINOIDS (test code = CANNABURN) NEGATIVE SCcutoff <50 NG/ML URN AMPHETAMINE (test code = AMPHETURN) POSITIVE SCcutoff <1000 NG/ML A URN BARBITURATE (test code = BARBITURN) NEGATIVE SCcutoff <200 NG/ML URN BENZODIAZEPINE (test code = BENZOURN) NEGATIVE SCcutoff <200 NG/ML URN OPIATES (test code = OPIATURN) NEGATIVE SCcutoff <2000 NG/ML URN PHENCYCLIDINE (PCP) (test code = PHENCURN) NEGATIVE SCcutoff <25 NG/ML URN METHADONE (test code = METHAURN) NEGATIVE SCcutoff <300 NG/ML SOURCE OF URINE: MIDSTREAMIndication for culture: Suprapubic PainUA RFLX MICR CULT IF [id number] 19:11:00* Test Item Value Reference Range Interpretation Comme nts UA COLOR (test code = COLU) YELLOW discript YEL/STRAW UA APPEARANCE (test code = APPU) CLEAR discript CLEAR UA GLUCOSE DIPSTICK (test code = DGLUU) NEGATIVE mg/dL NEG UA BILIRUBIN DIPSTICK (test code = BILU) NEGATIVE mg/dL NEG UA KETONE DIPSTICK (test code = KETU) NEGATIVE mg/dL NEG UA SPECIFIC GRAVITY (test code = SGU) 1.025 SG 1.005-1.030 UA BLOOD DIPSTICK (test code = BETTY) NEGATIVE mg/DL NEG UA PH DIPSTICK (test code = IDA) 6.0 pH UNITS 5.0-7.0 UA PROTEIN DIPSTICK (test code = PROU) TRACE mg/dL NEG A UA UROBILINIOGEN DIPSTICK (test code = URO) 0.2 mg/dL <2.0 UA NITRITE DIPSTICK (test code = HOLLI) NEGATIVE SCREEN NEG UA LEUKOCYTE ESTERASE DIPSTICK (test code = LEUU) NEGATIVE Leuk/mcL NEGATIVE UA CULTURE NEEDED? (test code = UACULT) Criteria Culture CHK SOURCE OF URINE: MIDSTREAMIndication for culture: Suprapubic PainDRUGS OF ABUSE SCREEN [id number] 19:11:00* Test Item Value Reference Range Interpretation Comme nts URN COCAINE (test code = COCAURN) NEGATIVE SCcutoff <300 NG/ML URN CANNABINOIDS (test code = CANNABURN) NEGATIVE SCcutoff <50 NG/ML URN AMPHETAMINE (test code = AMPHETURN) POSITIVE SCcutoff <1000 NG/ML A URN BARBITURATE (test code = BARBITURN) NEGATIVE SCcutoff <200 NG/ML URN BENZODIAZEPINE (test code = BENZOURN) NEGATIVE SCcutoff <200 NG/ML URN OPIATES (test code = OPIATURN) NEGATIVE SCcutoff <2000 NG/ML URN PHENCYCLIDINE (PCP) (test code = PHENCURN) NEGATIVE SCcutoff <25 NG/ML URN METHADONE (test code = METHAURN) NEGATIVE SCcutoff <300 NG/ML SOURCE OF URINE: MIDSTREAMIndication for culture: Suprapubic PainUA RFLX MICR CULT IF [id number] 19:07:00* Test Item Value Reference Range Interpretation Comme nts UA COLOR (test code = COLU) YELLOW discript YEL/STRAW UA APPEARANCE (test code = APPU) CLEAR discript CLEAR UA GLUCOSE DIPSTICK (test code = DGLUU) NEGATIVE mg/dL NEG UA BILIRUBIN DIPSTICK (test code = BILU) NEGATIVE mg/dL NEG UA KETONE DIPSTICK (test code = KETU) NEGATIVE mg/dL NEG UA SPECIFIC GRAVITY (test code = SGU) 1.025 SG 1.005-1.030 UA BLOOD DIPSTICK (test code = BETTY) NEGATIVE mg/DL NEG UA PH DIPSTICK (test code = IDA) 6.0 pH UNITS 5.0-7.0 UA PROTEIN DIPSTICK (test code = PROU) TRACE mg/dL NEG A UA UROBILINIOGEN DIPSTICK (test code = URO) 0.2 mg/dL <2.0 UA NITRITE DIPSTICK (test code = HOLLI) NEGATIVE SCREEN NEG UA LEUKOCYTE ESTERASE DIPSTICK (test code = LEUU) NEGATIVE Leuk/mcL NEGATIVE UA CULTURE NEEDED? (test code = UACULT) Criteria Culture CHK SOURCE OF URINE: MIDSTREAMIndication for culture: Suprapubic PainDRUGS OF ABUSE SCREEN [id number] 19:07:00* Test Item Value Reference Range Interpretation Comme nts URN COCAINE (test code = COCAURN) SCcutoff <300 NG/ML URN CANNABINOIDS (test code = CANNABURN) SCcutoff <50 NG/ML URN AMPHETAMINE (test code = AMPHETURN) SCcutoff <1000 NG/ML URN BARBITURATE (test code = BARBITURN) SCcutoff <200 NG/ML URN BENZODIAZEPINE (test cod e = BENZOURN) SCcutoff <200 NG/ML URN OPIATES (test code = OPIATURN) SCcutoff <2000 NG/ML URN PHENCYCLIDINE (PCP) (kathleen t code = PHENCURN) SCcutoff <25 NG/ML URN METHADONE (test code = METHAURN) SCcutoff <300 NG/ML SOURCE OF URINE: MIDSTREAMIndication for culture: Suprapubic PainBASIC METABOLIC [id number] 18:58:00* Test Item Value Reference Range Interpretation Comme nts SODIUM (test code = NA) 141 mmol/L 134-147 N POTASSIUM (test code = K) 3.9 mmol/L 3.4-5.0 N CHLORIDE (test code = CL) 108 mmol/L 100-108 N CARBON DIOXIDE (test code = CO2) 25 mmol/L 21-32 N ANION GAP (test code = GAP) 8.0 GAP calc 4.0-15.0 N GLUCOSE (test code = GLU) 77 MG/DL 70-110 N BLOOD UREA NITROGEN (test code = BUN) 18 MG/DL 7-18 N GLOMERULAR FILTRATION RATE (test code = GFR) >=60 max estimate estGFR >60 CREATININE (test code = CREAT) 0.7 MG/DL 0.6-1.0 N CALCIUM (test code = CA) 9.0 MG/DL 8.5-10.1 N HEPATIC FUNCTION [id number] 18:58:00* Test Item Value Reference Range Interpretation Comme nts TOTAL PROTEIN (test code = PROT) 7.2 G/DL 6.4-8.2 N ALBUMIN (test code = ALB) 4.1 G/DL 3.4-5.0 N BILIRUBIN TOTAL (test code = BILT) 0.60 MG/DL 0.2-1.2 N BILIRUBIN DIRECT (test code = BILD) 0.10 MG/DL 0.00-0.30 N BILIRUBIN INDIRECT (test cod e = BILIND) 0.50 MG/DL 0.2-1.2 N SGOT/AST (test code = AST) 36 Unit/L 15-37 N SGPT/ALT (test code = ALT) 36 Unit/L 12-78 N ALKALINE PHOSPHATASE TOTAL ( test code = ALKP) 62 Unit/L 45-117 N [id number] 18:58:00* Test Item Value Reference Range Interpretation Comme nts ALCOHOL (test code = ALC) < 3 MG/DL 0-10 N BASIC METABOLIC [id number] 18:56:00* Test Item Value Reference Range Interpretation Comme nts SODIUM (test code = NA) 141 mmol/L 134-147 N POTASSIUM (test code = K) 3.9 mmol/L 3.4-5.0 N CHLORIDE (test code = CL) 108 mmol/L 100-108 N CARBON DIOXIDE (test code = CO2) 25 mmol/L 21-32 N ANION GAP (test code = GAP) 8.0 GAP calc 4.0-15.0 N GLUCOSE (test code = GLU) 77 MG/DL 70-110 N BLOOD UREA NITROGEN (test co de = BUN) 18 MG/DL 7-18 N GLOMERULAR FILTRATION RATE ( test code = GFR) estGFR >60 CREATININE (test code = CREAT) MG/DL 0.6-1.0 CALCIUM (test code = CA) 9.0 MG/DL 8.5-10.1 N HEPATIC FUNCTION [id number] 18:56:00* Test Item Value Reference Range Interpretation Comme nts TOTAL PROTEIN (test code = PROT) G/DL 6.4-8.2 ALBUMIN (test code = ALB) G/DL 3.4-5.0 BILIRUBIN TOTAL (test code = BILT) MG/DL 0.2-1.2 BILIRUBIN DIRECT (test code = BILD) MG/DL 0.00-0.30 BILIRUBIN INDIRECT (test cod e = BILIND) MG/DL 0.2-1.2 SGOT/AST (test code = AST) Unit/L 15-37 SGPT/ALT (test code = ALT) Unit/L 12-78 ALKALINE PHOSPHATASE TOTAL ( test code = ALKP) Unit/L 45-117 [id number] 18:56:00* Test Item Value Reference Range Interpretation Comme nts ALCOHOL (test code = ALC) MG/DL 0-10 CBC W/AUTO [id number] 18:44:00* Test Item Value Reference Range Interpretation Comme nts WHITE BLOOD CELL (test code = WBC) 12.3 K/mm3 3.5-11.0 H RED BLOOD CELL (test code = RBC) 4.30 M/mm3 4.70-6.10 L HEMOGLOBIN (test code = HGB) 13.3 G/DL 10.4-14.9 N HEMATOCRIT (test code = HCT) 39.4 % 31.5-44.1 N MEAN CELL VOLUME (test code = MCV) 91.6 Fl 84.5-98.6 N MEAN CELL HGB (test code = MCH) 30.9 pg 27.0-34.2 N MEAN CELL HGB CONCETRATION ( test code = MCHC) 33.8 G/DL 31.5-34.0 N RED CELL DISTRIBUTION WIDTH (test code = RDW) 13.2 SD 11.5-14.5 N PLATELET COUNT (test code = PLT) 353.0 K/mm3 150-450 N MEAN PLATELET VOLUME (test c ode = MPV) 10.20 fL 7.0-10.5 N NEUTROPHIL % (test code = NT%) 68.0 [...] K/mm3 0.0-0.1 N MANUAL DIFF REQUIRED (test c ode = MDIFF) NO DIFF/SCN CRITERIA"
--- NOTE | 2024-04-13 17:10 | ER ---
Nurse's Notes [facility] Name: Kimberley Aquino Age: 28 yrs Sex: Female : 1995 Arrival Date: 04/13/2024 Time: 15:18 Bed Treatment Private MD: Diagnosis: Foreign body in left ear Presentation: 04/13 15:33 Chief complaint: Patient states: plug to left ear lobe that needs to be removed. Pt ll1 tried to remove it at home and was unsuccessful.. Coronavirus screen: Client denies travel out of the [place] in the last 14 days. At this time, the client does not indicate any symptoms associated with coronavirus-19. Ebola Screen: Patient denies travel to an Ebola-affected area in the 21 days before illness onset. No symptoms or risks identified at this time. Initial Sepsis Screen: Does the patient meet any 2 criteria? No. Patient's initial sepsis screen is negative. Does the patient have a suspected source of infection? No. Patient's initial sepsis screen is negative. Risk Assessment: Do you want to hurt yourself or someone else? Patient reports no desire to harm self or others. Onset of symptoms was April 13, 2024. 15:33 Method Of Arrival: Ambulatory ll1 15:33 Acuity: KVNG 4 ll1 Triage Assessment: 15:35 General: Appears in no apparent distress. comfortable, Behavior is calm, cooperative. ll1 Neuro: No deficits noted. Level of Consciousness is awake, alert, obeys commands, Oriented to person, place, time, situation, Appropriate for age. Respiratory: No deficits noted. Airway is patent Respiratory effort is even, unlabored, Respiratory pattern is regular, symmetrical. 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 - Infectious Disease History:: Denies. - Social history:: Smoking status: Patient reports the use of cigarette tobacco products, denies chronic smoking, but will smoke occasionally, Reported history of juuling and/or vaping. Screenin:10 [facility] ED Fall Risk Assessment (Adult) History of falling in the last 3 months, mb9 including since admission No falls in past 3 months (0 pts) Confusion or Disorientation No (0 pts) Intoxicated or Sedated No (0 pts) Impaired Gait No (0 pts) Mobility Assist Device Used No (0 pt) Altered Elimination No (0 pt) Score/Fall Risk Level 0 - 2 = Low Risk Oriented to surroundings, Maintained a safe environment, Educated pt \T\ family on fall prevention, incl call for assistance when getting out of bed. Abuse screen: Denies threats or abuse. Nutritional screening: No deficits noted. Tuberculosis screening: No symptoms or risk factors identified. Assessment: 16:10 General: Appears in no apparent distress. Behavior is calm, cooperative. Pain: Denies mb9 pain. Neuro: Jauregui Agitation-Sedation Scale (RASS): 0 - Alert and Calm Level of Consciousness is awake, alert, obeys commands, Oriented to person, place, time, situation, Appropriate for age. Cardiovascular: No deficits noted. Respiratory: Airway is patent Respiratory effort is even, unlabored, Respiratory pattern is regular, symmetrical. GI: No deficits noted. : No signs and/or symptoms were reported regarding the genitourinary system. EENT: Ear canal. Derm: Skin is pink, warm \T\ dry. Musculoskeletal: Swelling present in left ear. 17:15 Reassessment: No changes from previously documented assessment. Patient and/or family mb9 updated on plan of care and expected duration. Pain level reassessed. Patient is alert, oriented x 3, equal unlabored respirations, skin warm/dry/pink. Vital Signs: 15:33 BP 118 / 78; Pulse 82; Resp 16; Temp 97.9; Pulse Ox 100% on R/A; Weight 77.11 kg; ll1 Height 5 ft. 9 in. ; Pain 4/10; 15:33 Body Mass Index 25.10 (77.11 kg, 175.26 cm) ll1 15:33 Pain Scale: Adult ll1 ED Course: 15:20 Patient arrived in ED. ra3 15:23 Marta Guevara MD is Attending Physician. gb1 15:34 Triage completed. ll1 15:35 Arm band placed on Patient placed in an exam room, on a stretcher. ll1 15:53 Adrianna Camacho RN is Primary Nurse. mb9 16:10 Placed in gown. Bed in low position. Call light in reach. Side rails up X 1. Provided peter9 Education on: press call light if needing anything. Client placed on continuous cardiac and pulse oximetry monitoring. NIBP monitoring applied. 17:15 Patient did not have IV access during this emergency room visit. judi 17:15 Assisted provider with: removal of foreign body in left ear. mb9 Administered Medications: No medications were administered Medication: 16:10 VIS not applicable for this client. [email or web address] Outcome: 17:10 Discharge ordered by . gualberto 17:16 Discharged to home ambulatory, with family, judi 17:16 Condition: stable 17:16 Discharge instructions given to patient, Instructed on discharge instructions, follow up and referral plans. Demonstrated understanding of instructions, follow-up care, medications, Prescriptions given X 1, 17:16 Patient left the ED. peter9 Signatures: Nicole Beavers RN RN ll1 Adrianna Camacho RN RN mb9 Marta Guevara MD MD gb1 Heidy Mars ra3
--- NOTE | 2024-04-13 17:10 | EDPHYS ---
Physician Documentation [facility] Name: Kimberley Aquino Age: 28 yrs Sex: Female : 1995 Arrival Date: 04/13/2024 Time: 15:18 Bed Treatment Private MD: ED Physician Marta Guevara HPI: 04/13 17:13 This 28 yrs old Female presents to ER via Ambulatory with complaints of gb1 Foreign Body In Ear. 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 - Infectious Disease History:: Denies. - Social history:: Smoking status: Patient reports the use of cigarette tobacco products, denies chronic smoking, but will smoke occasionally, Reported history of juuling and/or vaping. Exam: 17:13 Constitutional: This is a well developed, well nourished patient who is awake, alert, gb1 and in no acute distress. Head/Face: Normocephalic, atraumatic. Eyes: Pupils equal round and reactive to light, extra-ocular motions intact. Lids and lashes normal. Conjunctiva and sclera are non-icteric and not injected. Cornea within normal limits. Periorbital areas with no swelling, redness, or edema. ENT: Nares patent. No nasal discharge, no septal abnormalities noted. Tympanic membranes are normal and external auditory canals are clear. The left earlobe has a gauge stuffiness and has a foul odor. Oropharynx with no redness, swelling, or masses, exudates, or evidence of obstruction, uvula midline. Mucous membranes moist. Neck: Trachea midline, no thyromegaly or masses palpated, and no cervical lymphadenopathy. Supple, full range of motion without nuchal rigidity, or vertebral point tenderness. No Meningismus. Chest/axilla: Normal chest wall appearance and motion. Nontender with no deformity. No lesions are appreciated. Cardiovascular: Regular rate and rhythm with a normal S1 and S2. No gallops, murmurs, or rubs. Normal PMI, no JVD. No pulse deficits. Respiratory: Lungs have equal breath sounds bilaterally, clear to auscultation and percussion. No rales, rhonchi or wheezes noted. No increased work of breathing, no retractions or nasal flaring. Abdomen/GI: Soft, non-tender, with normal bowel sounds. No distension or tympany. No guarding or rebound. No evidence of tenderness throughout. Skin: Warm, dry with normal turgor. Normal color with no rashes, no lesions, and no evidence of cellulitis. Vital Signs: 15:33 BP 118 / 78; Pulse 82; Resp 16; Temp 97.9; Pulse Ox 100% on R/A; Weight 77.11 kg; ll1 Height 5 ft. 9 in. ; Pain 4/10; 15:33 Body Mass Index 25.10 (77.11 kg, 175.26 cm) ll1 15:33 Pain Scale: Adult ll1 Procedures: 17:13 Performed Foreign body removal of an earring gauge from the left Earlobe. It was cut gb1 out with a laceration tray contents. No laceration to the actual earlobe. MDM: 15:38 Patient medically screened. gb1 17:13 Differential diagnosis: foreign body, acute otalgia. Data reviewed: vital signs, nurses gb1 notes. Administered Medications: No medications were administered Disposition Summary: 04/13/24 17:10 Discharge Ordered Notes: Location: Home gb1 Problem: new gb1 Symptoms: have improved gb1 Condition: Stable gb1 Diagnosis - Foreign body in left ear gb1 Followup: gb1 - With: Private Physician - When: 1 - 2 days - Reason: Wound Recheck Discharge Instructions: - Discharge Summary Sheet gb1 - Cellulitis, Adult, [id number] gb1 - Ear Foreign Body, [id number] gb1 Forms: - Medication Reconciliation Form gb1 - Antibiotic Education gb1 - Prescription Opioid Use gb1 - Patient Portal Instructions gb1 - Leadership Thank You Letter gb1 Prescriptions: - mupirocin 2 % Topical ointment - apply 1 application TOPICAL route 2 times per day for 5 days; 3.5 gram; gb1 Refills: 0, Product Selection Permitted Signatures: Nicole Beavers RN RN ll1 Marta Guevara MD MD gb1
[2024-04-13 18:09] VITALS: BP 124/71; TEMP 98.1; O2SAT 100
== END 2024-04-13 17:16 | disposition home or self-care (01) ==
LOC: ER 15:18
PROC: 09C1XZZ Extirpation of Matter from Left External Ear, External Approach (ICD-10-PCS; principal; 2024-04-13)
DX: T16.2XXA Foreign body in left ear, initial encounter (principal)
CPT/HCPCS: 99283